=== PATIENT | male | born 1935 | race Caucasian/White ===

== ENCOUNTER 2016-05-01 23:18 | Inpatient (IN) | payer MEDICARE, BC ==
[~2016-05-01] VITALS: Ht 162.6 cm; Wt 72.0 kg
--- NOTE | ~2016-05-01 | CON ---
PATIENT'S NAME: ALTHEA MORRIS [facility] AGE: 80 Y [address] ROOM: [place] [address] LOCATION: [facility] ADMIT DATE: 05/01/2016 Consultation DISCHARGE DATE: FAMILY PHYSICIAN: Vamshi Parikh MD ATTENDING PHYSICIAN: JAMAL PALACIOS DATE OF CONSULTATION: 05/02/2016 CHIEF COMPLAINT: Right frontal intraparenchymal hemorrhage, left-sided weakness, and dysphasia. CLINICAL HISTORY: The patient is an 80-year-old right-handed male patient, who was admitted to the hospital last night after a noncontrast CT head showed a large right frontal intraparenchymal hemorrhage. I met the patient on the Neuro Trauma Unit in the presence of his . Most of the history was obtained from the . She clearly indicated that the patient had a fall from a standing position last night and immediately she noticed difficulties with his speech as well as left-sided weakness. The patient was taken to a nearby emergency where he was investigated. Later on and after a noncontrast CT head showed the right-sided frontal intraparenchymal hemorrhage, he was transferred over for closer observation. He was assessed by Neurology last night. I was contacted and reviewed the imaging. The imaging did show 4 x 2.5 cm intraparenchymal hemorrhage located in the mesial aspect of the right frontal lobe and associated with a small subdural hemorrhage. No other hemorrhages were seen. Overnight, the patient remained stable. The family noticed worsening of his dysphasia. The denied that the patient had complained of any headaches or seizures. There was no loss of consciousness. No fever. No chills. PAST MEDICAL AND SURGICAL HISTORY: Significant coronary artery disease, on Eliquis; CABG surgery; and hernia surgery. MEDICATIONS: Listed in the patient's chart. Essentially, the patient takes Eliquis 2.5 mg b.i.d. ALLERGIES: NO KNOWN DRUG ALLERGIES. SOCIAL HISTORY: The patient is and lives with his in [place]. No history of smoking or alcohol drinking. PATIENT'S NAME: ALTHEA MORRIS [facility] AGE: 80 Y [address] ROOM: [place] [address] LOCATION: [facility] ADMIT DATE: 05/01/2016 Consultation DISCHARGE DATE: FAMILY PHYSICIAN: Vamshi Parikh MD ATTENDING PHYSICIAN: JAMAL PALACIOS REVIEW OF SYSTEMS: All points review of systems were asked about to the . Pertinent positives were mentioned in the HPI. FAMILY HISTORY: The patient has a sister with hypertension. PHYSICAL EXAMINATION: GENERAL: The patient was cooperative and pleasant. He had significant dysphasia and word finding difficulties. HEENT: atraumatic. Sclerae examination was normal bilaterally. NECK: He had mild tenderness to palpation. The neck range of motion was reasonable, but limited in all directions. LYMPHATIC: No cervical lymphadenopathy. CARDIOVASCULAR: He had palpable pulses on the upper extremities. RESPIRATORY: He was in mild respiratory distress. SKIN: He had a sternotomy scar from previous CABG surgery. GAIT: Not done. BACK: Not done. NEUROLOGIC: He was alert and awake. He had significant dysphasia with word- finding difficulties. The pupils were 3 mm and reactive. He was tracking with both eyes in all directions. He obeyed commands on both upper extremities and the right lower extremity. He had fxrzrzji-nx-pfgnjn weakness on the left upper extremity, severe/paralysis of the left lower extremity. Sensory examination was unremarkable. INVESTIGATIONS: 1. Noncontrast CT of the head done at [facility] at 09:35 p.m. and repeated at our hospital at 1 a.m. It showed evidence of a right frontal mesial intraparenchymal hemorrhage, measuring 4.5 cm on the anterior-posterior plane. It also showed evidence of a small adjacent subdural hematoma along the falx cerebri. No evidence of significant edema within the right frontal lobe. 2. CT angiogram of the head and neck. It was negative for aneurysms, vascular malformations. However, it showed evidence of severe stenosis in the right cervical internal carotid artery. IMPRESSION: This is an 80-year-old male patient, who is on Eliquis, post valve replacement. Had a fall yesterday from a standing position. His imaging showed evidence of a right frontal mesial intraparenchymal hemorrhage. The patient has dysphasia and left hemiparesis. The CT angiogram was negative for vascular malformations and aneurysms. PATIENT'S NAME: ALTHEA MORRIS [facility] AGE: 80 Y [address] ROOM: [id number] [place], [place] [address] LOCATION: [facility] ADMIT DATE: 05/01/2016 Consultation DISCHARGE DATE: FAMILY PHYSICIAN: Vamshi Parikh MD ATTENDING PHYSICIAN: JAMAL PALACIOS PLAN: 1. Observation in the neuro trauma unit. 2. Keep the systolic blood pressure less than 150. 3. Repeat noncontrast CT of the head in 24 hours. 4. Vascular Surgery consultation. 5. Cardiology evaluation given the significant cardiac history. 6. Hospitalist consultation for medical management. I discussed the imaging with the patient's and with the attending physician. I clearly indicated that no surgery is needed at this point. I also indicated that the vascular imaging only showed stenosis in the right cervical internal carotid artery. No evidence of aneurysms or vascular malformations that would explain the hemorrhage. I then discussed my plan with both of them. They asked appropriate questions and those were answered to their satisfaction. It was pleasure taking care of this patient and thanks for having us involved. WILLIAM NYE MD AB/modl /[id number] CC: MD Vamshi Menjivar MD d: 05/02/16 2147 t: 05/05/16 1325, CONSULTATION REPORT
--- NOTE | ~2016-05-01 | CON ---
PATIENT'S NAME: ALTHEA MORRIS [facility] AGE: 80 Y [address] ROOM: [place] [address] LOCATION: [facility] [place] ADMIT DATE: 05/01/2016 Consultation DISCHARGE DATE: FAMILY PHYSICIAN: Vamshi Parikh MD ATTENDING PHYSICIAN: JAMAL PALACIOS DATE OF CONSULTATION: 05/02/2016 REASON FOR CONSULT: Right carotid stenosis. HISTORY OF PRESENTING ILLNESS: This is an 80-year-old male admitted to [facility] for slurred speech and left extremity weakness. The patient reports that he fell on April 28, 2016, hitting the back of his head, but he did not experience any symptoms until May 01, 2016. He started to experience slurred speech and left-sided weakness and had another fall at home. The patient was taken to the emergency room at [facility], and the patient was found to have a right-sided frontal intraparenchymal hemorrhage. The patient was transferred to [facility]. The patient has a known history of atrial fibrillation and was on Eliquis during the time of the fall. Once at [facility], a CTA was conducted which was negative for aneurysms or vascular malformation; however, it revealed severe stenosis and plaque in the right internal carotid artery. The patient denies any vision changes, speech changes, or weakness prior leading up to the events mentioned above. No history of tobacco or nicotine use or diabetes. The patient does report leg pain; however, it is not consistent with claudication. He denies any chest pain. Does have some shortness of breath with exertion. Denies nausea, vomiting, diarrhea, abdominal pain, or edema. PAST MEDICAL HISTORY: 1. Coronary artery disease. 2. Atrial fibrillation. 3. Essential hypertension. 4. 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 PAST SURGICAL HISTORY: 1. Coronary artery bypass grafting x2 vessels, multiple heart stents. 2. Pacemaker. 3. Hernia repair. FAMILY HISTORY: Both parents from pneumonia. SOCIAL HISTORY: PATIENT'S NAME: ALTHEA MORRIS [facility] AGE: 80 Y [address] ROOM: [place] [address] LOCATION: [facility] ADMIT DATE: 05/01/2016 Consultation DISCHARGE DATE: FAMILY PHYSICIAN: Vamshi Parikh MD ATTENDING PHYSICIAN: JAMAL PALACIOS The patient denies any nicotine use. He denies any alcohol or illicit drug use. The patient lives in [place] with his . CURRENT MEDICATIONS: See medication records. ALLERGIES: NO KNOWN ALLERGIES. REVIEW OF SYSTEMS: A 10-point review of systems completed, positives addressed in the History of Presenting Illness. PHYSICAL EXAMINATION: VITAL SIGNS: Temperature 97.9, heart rate 70, respiratory rate 18, blood pressure 147/70, and oxygen saturation is 94%. GENERAL: The patient is in no acute distress. He is alert and oriented x3. He does report feeling weak and fatigued and falls asleep multiple times during the interview. SKIN: Warm and pink. No rashes. HEENT: Head: Normocephalic and atraumatic. Ears: Without drainage. Eyes: Sclerae are white. Conjunctivae pink. Extraocular movements intact. PERRLA. Nose: Without drainage. Throat: Oral mucosa pink and moist. No exudate or erythema. NECK: Without adenopathy. No evidence of JVD. Trachea midline. No carotid bruits. RESPIRATORY: Clear to auscultation bilaterally. Even and unlabored. CARDIOVASCULAR: Regular rate and rhythm. No murmur or extra sounds. GASTROINTESTINAL: Bowel sounds active x4. Soft and nontender. No organomegaly. EXTREMITIES: Femoral and radial pulse 2+. Dorsalis pedis and posterior tibialis 1+. There is no cyanosis. No edema. No ulcerations. Extremities are warm to touch. NEUROLOGICAL: The patient has left upper and lower extremity weakness in comparison to the right. Does have difficulty finding his words at times. IMPRESSION: 1. Right carotid stenosis. 2. Hemorrhagic infarct. 3. Essential hypertension. 4. Atrial fibrillation. PLAN: The patient has right high-grade internal carotid artery stenosis. The patient will need right carotid endarterectomy in the future to prevent PATIENT'S NAME: ALTHEA MORRIS [facility] AGE: 80 Y [address] ROOM: [id number] [place] [id number] LOCATION: [facility] ADMIT DATE: 05/01/2016 Consultation DISCHARGE DATE: FAMILY PHYSICIAN: Vamshi Parikh MD ATTENDING PHYSICIAN: JAMAL PALACIOS ischemic stroke. At this time, we are unable to surgically intervene without the use of antiplatelets and anticoagulants. Therefore, the patient may follow up in clinic with Dr. Patel once he is cleared by Neurosurgery to use blood thinners. From that point, we will begin planning for right carotid endarterectomy. In the meantime, we recommend continuing atorvastatin and also resuming Eliquis once he is cleared. We will follow the patient as an outpatient. Thank you for your consultation and for allowing us to participate in the care of this patient. KAILA SOTO APRN FOR HENRY PATEL MD TO/mary /[id number] d: 05/03/16 1057 t: 05/13/16 1732, CONSULTATION REPORT
--- NOTE | ~2016-05-01 | CON ---
PATIENT'S NAME: ALTHEA RADFORD [facility] AGE: 80 Y [address] ROOM: [id number] [place], [place] [address] LOCATION: [facility] ADMIT DATE: 05/01/2016 Consultation DISCHARGE DATE: FAMILY PHYSICIAN: Vamshi Parikh MD ATTENDING PHYSICIAN: JAMAL PALACIOS DATE OF CONSULTATION: 05/02/2016 The patient was seen in neurologic consultation on 05/02/2016 at 12:01 a.m. HISTORY OF PRESENT ILLNESS: Mr. Radford was transferred here this evening from [facility] after we accepted him this evening upon the patient arriving with new onset of slurring of his speech and weakness of his left arm and leg. The history is such that this is a fairly healthy 80-year-old male who is very active. On Friday, approximately 3-1/2 days ago, he was doing a lot of work outside. In fact, he was running around and apparently stepped into a goal for hole and fell backwards hitting the back of his head. He did not lose any consciousness. After the event, he was fine. He did not have any weakness of his extremities. He did not have a headache. He did not have any dizziness. He had no sensory issues. In fact, up until this evening, the patient was doing well and was in his usual state of health. At approximately 8:00 p.m. this evening, he was in his room putting on his pajamas and suddenly got weak in his left leg and fell to his side injuring his left rib. He did not hit his head this evening. His found him on the floor and noticed that he could not move his left arm and his left leg. His mental status was normal and he did not have any aphasia, but he did have severe slurring of his speech. He was taken to the emergency room at [facility] where a CT scan noncontrast was performed and showed evidence of likely acute hemorrhage in the high right frontal region of the brain superior to the ventricles. The bleed was near the falx with some blood noted transecting along the falx, some subtle secondary subdural blood. I saw the patient, this early a.m. and he was alert and oriented. He was not complaining about any headache. He did not have any field vision deficit. He did not have any fixed eye deviation. He was not complaining about a headache. He did not have any nauseousness or vomiting. He did not complain of any sensory deficits. He could elevate his left arm, but there was a drift, but he maintains his left arm elevated. He could move his left leg, but minimally was able to elevate it above the bed for only 1 second. His right side was completely of normal power. Speech was severely slurred, but he did not have any problems with language. In fact, he was able to name objects and parts of objects such as ballpoint pen and the pen point. He was able to follow all cross-body commands such as putting his left thumb on his right forehead. He did not complain about any head or facial pain. He was even able to answer all my questions this evening. He did appear to be a bit tired however. PATIENT'S NAME: ALTHEA RADFORD [facility] AGE: 80 Y [address] ROOM: [place] [address] LOCATION: [facility] ADMIT DATE: 05/01/2016 Consultation DISCHARGE DATE: FAMILY PHYSICIAN: Vamshi Parikh MD ATTENDING PHYSICIAN: JAMAL PALACIOS PRIOR MEDICAL HISTORY: He does have a history of, I believe, coronary artery disease and history of an MD. He had a cardiac surgery with a pig valve, the unknown location of this valve and it is possible he does have a history of arrhythmia. He is currently maintained on Eliquis and he was taking this medication this evening. There is no known history of hypertension. He has no history of diabetes. CURRENT MEDICATIONS: Include: 1. Multivitamin 1 tablet p.o. daily. 2. Eliquis 2.5 mg 1 tablet p.o. twice daily. 3. Furosemide 60 mg daily. 4. Gabapentin 100 mg orally daily. 5. Isosorbide mononitrate ER 30 mg tablet extended release daily. 6. Potassium chloride supplementation 20 mEq extended release daily. 7. Nitroglycerin 0.4 mg tablets orally as needed. ALLERGIES: HE HAS NO KNOWN DRUG ALLERGIES. FAMILY HISTORY: He has a brother who at a young age of 3939 years old of a myocardial infarction. He also has a sister, who had heart disease. We do not know the family history of his parents. SOCIAL HISTORY: He has been for 57 years. He recently lost 1 son and he lives with his jdtkbelv-tu-gxa here in [place]. He moved from the [place] area within the year. He lives with his now at the igcxkuso-px-nsg's home. He has one child, currently living and he has a grandchild who was present today. There is no smoking history. No alcohol use. 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 REVIEW OF SYSTEMS: This is a fairly healthy 80-year-old male patient, who was active and had an accidental trip with his footing, hit the back of his head on Friday approximately 3-1/2 days ago. He did not have any sequela from the head injury. He did not have any signs of the stroke or slurring of his speech. He was doing fine until this evening on April 03, 2016, when he went to go change in his bedroom and suddenly became weak on his left leg and fell on a cardboard box injuring his left ribs. He remains alert and oriented. He was noted to have slurring of his speech and left hemiparesis. He was found to have an acute hemorrhage in the left high frontal region of the brain. PATIENT'S NAME: ALTHEA RADFORD [facility] AGE: 80 Y [address] ROOM: [address] [address] LOCATION: [facility] ADMIT DATE: 05/01/2016 Consultation DISCHARGE DATE: FAMILY PHYSICIAN: Vamshi Parikh MD ATTENDING PHYSICIAN: JAMAL PALACIOS PHYSICAL EXAMINATION: GENERAL: The patient was alert and oriented. He did have slurring of speech. He did not have any aphasia. His naming of objects and parts of objects again were normal. Repetition was also normal, but slurred. CRANIAL NERVES: Pupils are equal and reactive to light and accommodation. Extraocular muscles are intact. There was no gaze preference. There is no facial droop. There is normal facial symmetry and sensation. NECK: Supple on flexion and extension. There is no pain in the cervical spine region or into his trapezius muscles or his paraspinal muscles of his neck. He has no pain into the shoulder region. He is able to elevate his arms above his head, but he does have a bit of a drift in his distal forearm and hand. His hand copper etcher is a bit diminished on the left. His right upper extremity power is full at 5/5 grade and right lower extremity power was 5/5. His left leg is the weakest and can only elevate it for about 1 second above the bed. Testing of the cortical sensory perception was completely normal. He was able to identify the left and right discrimination and double simultaneous stimulation was normal. Sensation to light touch and sharp touch was normal. Rapid alternating hand movements were normal and he displayed no dysmetria on the right and subtle weakness was noted in the left upper extremity and was unable to perform testing for dysmetria. The patient was not ambulated. So, at this point in time, upon the advice of Dr. Ta Ceja, the neurosurgeon, I did go over the results of the CAT scan of the brain. He suggested that we get a CT angiogram at this time. We want to rule out any possibility of a vascular abnormality such as a small aneurysm. It is quite possible that the patient had a primary bleed unrelated to the recent fall. Thus, a CT angiogram would look for any evidence of this intraparenchymal finding. Since the bleed is above the ventricles, it does not seem to compromise the ventricular system and this is less likely to cause a seizure. By prior medical history, there is a suggestion that he did one time also hit his head and had a prior small hemorrhage that resulted in him having a seizure in the past. Apparently, he was on a seizure medication for a short time, but he did not require a seizure medication for an extended period of time. He cannot tell me how long he was on a seizure med. We will hold off on giving him an antiepileptic medication at this time. Chance for a seizure is probably low, due to lack of blood in the ventricle. We will continue to follow the patient closely and try to maintain his blood pressure in the range of 120-150 this evening. The case was discussed with Dr. Castillo from the hospitalist service this evening along with Dr. Ceja. PATIENT'S NAME: ALTHEA RADFORD [facility] AGE: 80 Y [address] ROOM: [place] [address] LOCATION: [facility] ADMIT DATE: 05/01/2016 Consultation DISCHARGE DATE: FAMILY PHYSICIAN: Vamshi Parikh MD ATTENDING PHYSICIAN: JAMAL PALACIOS MD JRM/modl /[id number] d: 05/02/16 0830 t: 05/07/16 1606, CONSULTATION REPORT
--- NOTE | ~2016-05-01 | HP ---
PATIENT'S NAME: ALTHEA MORRIS [facility] AGE: 80 Y [address] ROOM: [place] [address] LOCATION: [facility] ADMIT DATE: 05/01/2016 History & Physical DISCHARGE DATE: FAMILY PHYSICIAN: Vamshi Parikh MD ATTENDING PHYSICIAN: JAMAL DOLL DATE OF SERVICE: CHIEF COMPLAINT: Slurred speech and left lower extremity weakness. HISTORY OF PRESENT ILLNESS: The patient is an 80-year-old male with past medical history of atrial fibrillation, and multiple cardiac conditions, currently on Eliquis who sustained a mechanical fall approximately two days ago. At that point, he did not volunteer any complaints. Today, the patient was noted to be slurred and imbalanced and falling over. He did fall over some chairs and hurt his left posterior thorax. He was taken to the emergency room at [facility]. There a CAT scan demonstrated a right parietal intracerebral hemorrhage. The patient was accepted by Dr. Doll, and transferred to [facility]. At this point, the patient has been seen by Dr. Doll and discussed with Dr. Ceja of Neurosurgery. A CT angiogram is currently being conducted. At this point, the patient's only complaint is slurred speech and rib pain at left posterior thorax. REVIEW OF SYSTEMS: All systems have been reviewed and are negative aside for pertinent positives mentioned above. PAST MEDICAL HISTORY: Significant for: 1. Coronary artery disease, status post CABG x2, multiple stents, status post pacemaker, long-term anticoagulation for atrial fibrillation. 2. Hypertension. 3. History of an intracerebral hemorrhage with seizures due to a mechanical fall in 2008. SURGICAL HISTORY: Significant for CABG x2. PATIENT'S NAME: ALTHEA MORRIS [facility] AGE: 80 Y [address] ROOM: [place] [address] LOCATION: [facility] ADMIT DATE: 05/01/2016 History & Physical DISCHARGE DATE: FAMILY PHYSICIAN: Vamshi Parikh MD ATTENDING PHYSICIAN: JAMAL DOLL SOCIAL HISTORY: Negative for any history of ongoing toxic habits. FAMILY HISTORY: Reviewed in its entirety and is noncontributory due to no underlying etiology for patient's presentation. CURRENT MEDICATIONS: Include: 1. Spironolactone. 2. Eliquis. 3. A full list is currently being compiled. PHYSICAL EXAMINATION: VITAL SIGNS: At this point, blood pressure 120/60, heart rate is in the 60s, saturating 96% on room air. He is afebrile. Respirations are 16. GENERAL: Appears as a well-developed, well-nourished, elderly male, in no acute distress. NEUROLOGIC: Significant for slurred speech. Some very minor left-sided facial droop and diminished motor function in the left upper and left lower extremities. EYES: Shows pupils are equal and reactive to light. LYMPHATIC: Shows no cervical lymphadenopathy. ENDOCRINE: Shows no thyromegaly. LUNGS: Clear to auscultation. HEART: Rate is regular with no appreciable murmurs, gallops, or rubs. GI: Abdomen is soft, nontender, and nondistended. THORAX: Does reveals some tenderness to percussion over his left posterior thorax. : Reveals no costovertebral angle tenderness. VASCULAR: 2+ pedal pulses. MUSCULOSKELETAL: As per thorax. PSYCHIATRIC: Reveals appropriate mood, cognition, and affect. SKIN: Warm and dry. LABORATORY DATA: Review of studies from the outside facility significant for a 4 mm right frontal hemorrhagic lesion on the CAT scan. Lab results significant for sodium 132. ASSESSMENT AND PLAN: 1. This is an 80-year-old male, who is being admitted with intracerebral hemorrhage status post mechanical fall. The patient is being followed by Neurology and Neurosurgery. At this point, he is undergoing a CT angio to see if an aneurysm can be located and fixed. We will also evaluate for evolution of the hemorrhage and consider reversing his PATIENT'S NAME: ALTHEA MORRIS [facility] AGE: 80 Y [address] ROOM: [id number] [place] [id number] LOCATION: [facility] ADMIT DATE: 05/01/2016 History & Physical DISCHARGE DATE: FAMILY PHYSICIAN: Vamshi Parikh MD ATTENDING PHYSICIAN: JAMAL DOLL anticoagulation if there is significant progression. We will discuss with Neurosurgery. 2. Atrial fibrillation. At this point, we will obviously hold off on his Eliquis and continue on his rate and rhythm control agents. 3. Coagulopathy. There is no definitive way of reversing Eliquis, but we will consider Kcentra if considerable progression of the hemorrhage is seen. 4. Essential hypertension. We will continue the patient on his current regimen and control his blood pressure in the setting of intracerebral hemorrhage. 5. We will request a bedside speech evaluation. Put him on a regular diet if he passes that, he will need a formal evaluation given his present neurological exam. 6. Additional management will depend on clinical course. Time dedicated to patient encounter is 35 minutes. MD DARREN ANDRADE/mary /[id number] D: T: 951 HISTORY & PHYSICAL
--- NOTE | ~2016-05-01 | CON ---
PATIENT'S NAME: ANIL RADFORD [facility] AGE: 80 Y [address] ROOM: [id number] [place], [place] [address] LOCATION: [facility] ADMIT DATE: 05/01/2016 Consultation DISCHARGE DATE: FAMILY PHYSICIAN: Vamshi Parikh MD ATTENDING PHYSICIAN: JAMAL PALACIOS DATE OF CONSULTATION: 05/02/[address] Ceja. Dear Dr. Ceja: Thank you for asking me to see Mr. Radford, who is an 80-year-old male patient, who had an accidental fall about 4 days earlier at home, hitting the back of his head. Yesterday evening, he had a fairly sudden onset of difficulty with his speech and left-sided weakness. He was taken to [facility] emergency room from where he was transferred here for neurosurgical consultation because of right frontal bleeding. I am being asked to see him because of his extensive heart history. The history is mostly from the patient's and his medical records that are available to me with some occasional help from Anil when he wakes up from a nap. It appears as if he had an NC in 1986 for the first time. He underwent 3-vessel bypass grafting at that time. He underwent 8 different stenting procedures, most of those were done in [facility] in [place]. In 2009, he underwent a "pig valve" replacement and 2-vessel bypass grafting. Since then, he has had one other stent placed. In addition, he also has paroxysmal atrial fibrillation as well as permanent pacemaker placement. From his cardiac standpoint, he has not been very symptomatic. He has not had any chest pain lately. He denies any shortness of breath. His states that he is not as strong as he used to be, and he also tires rather easily. If he walks a block and a half, he gets short of breath, but he still seemed to be in Functional Class II with no paroxysmal nocturnal dyspnea or orthopnea as long as he is using his CPAP at night. He has no structured exercise program. There is no lightheadedness, dizziness, syncope, presyncope, palpitations, or ankle swelling. He used to be on Coumadin before and was transferred to apixaban at some point in the past, and she is unable to remember that. There is no history of rheumatic fever. His CHADS2-VASc score is 3 at this time. His HAS-BLED score is fairly low. MEDICATIONS: PATIENT'S NAME: ANIL RADFORD [facility] AGE: 80 Y [address] ROOM: [place] [address] LOCATION: [facility] ADMIT DATE: 05/01/2016 Consultation DISCHARGE DATE: FAMILY PHYSICIAN: Vamshi Parikh MD ATTENDING PHYSICIAN: JAMAL PALACIOS His current list of medications that he came in with, of which his apixaban is being held. They include: 1. Tylenol p.r.n. 2. Apixaban as mentioned which is being held. 3. Carvedilol which is being held again. 4. Vitamin D3 a 1000 units every day. 5. Furosemide 40 mg 1-1/2 tablets a day. 6. Gabapentin 100 mg 3 times a day. 7. Isosorbide mononitrate 30 mg a day. 8. Multivitamin. 9. Nitroglycerin as needed. 10. Protonix 40 mg a day. 11. Potassium chloride 20 mEq every day. 12. Pravastatin 40 mg a day. 13. Aldactone 25 mg a day. 14. Iron tablet once a day. ALLERGIES: NO KNOWN DRUG ALLERGIES. PAST MEDICAL HISTORY: 1. History of knee surgery. 2. Rotator cuff surgery. 3. He had a fall in 2012 after which he had several seizures, and he had bled into his brain at that time as well. He was taken to [facility] and was treated with medications. 4. Sleep apnea, and he uses CPAP machine. SOCIAL HISTORY: The patient is . He lives in [place]. His appetite and weight have been stable. Sleep has been good. FAMILY HISTORY: Positive for premature coronary artery disease. RISK FACTORS FOR CORONARY ARTERY DISEASE: Include elevated cholesterol and family history. He has no history of hypertension, diabetes, or tobacco abuse. REVIEW OF SYSTEMS: A 12-point review of systems revealed: 1. Corrective lenses. 2. Hiatal hernia. 3. DJD. PATIENT'S NAME: ANIL RADFORD [facility] AGE: 80 Y [address] ROOM: [place] [address] LOCATION: [facility] ADMIT DATE: 05/01/2016 Consultation DISCHARGE DATE: FAMILY PHYSICIAN: Vamshi Parikh MD ATTENDING PHYSICIAN: JAMAL PALACIOS PHYSICAL EXAMINATION: VITAL SIGNS: His blood pressure is 140/80, heart rate is in the 70s and he is paced, respirations are 18, afebrile. HEENT: Normal. NECK: Supple with no JVD, thyromegaly, lymphadenopathy, or carotid bruit. CARDIAC: PMI is not well located. First and second heart sounds are regular. He does not have any murmurs at this time at least. CHEST: Clear to auscultation. ABDOMEN: Soft. EXTREMITIES: No edema. CENTRAL NERVOUS SYSTEM: Some weakness in his left leg. ASSESSMENT: An 80-year-old male patient with coronary artery disease as above as well as aortic valve replacement, pacemaker placement, and paroxysmal atrial fibrillation with a CHADS2-VASc score of 3 and HAS-BLED score of about 1. He has had an accidental fall and bled into his brain. Appropriately, his apixaban is being held. Interestingly, he had another fall about 4 years earlier where he hit his head, bled into his brain, and had seizures that was treated in [facility]. RECOMMENDATIONS: 1. We will get hold of his surgical report from [facility] in [place]. In addition, I will switch him from pravastatin to atorvastatin given the fact that he has severe atherosclerotic disease which is progressing. He has bilateral carotid ultrasounds done recently which show that he has less than 50% lesion on both sides. 2. We will have his pacemaker checked. 3. He did have an echocardiogram done in the early part of this month which showed normal ejection fraction without any obvious wall motion abnormalities and normally functioning valve in the aortic position. His Lexiscan Cardiolite study, which was done earlier again this month, revealed no evidence of ischemia. He had a fairly large fixed defect involving the inferior wall. 4. For his cramps, I have recommended vitamin E 800 units a day, and I am not sure that we have that in our pharmacy at this point, but I will try it. Once we get the report from [facility] in [place], we will discuss with yourself regarding when it is, if ever, appropriate for him to go back on oral anticoagulation given his 4% to 5% chance of having a stroke per year based on his CHADS2-VASc score. Again, I appreciate this opportunity to participate in the care of Mr. Radford. PATIENT'S NAME: ANIL RADFORD [facility] AGE: 80 Y [address] ROOM: [id number] [place] [id number] LOCATION: [facility] ADMIT DATE: 05/01/2016 Consultation DISCHARGE DATE: FAMILY PHYSICIAN: Vamshi Parikh MD ATTENDING PHYSICIAN: JAMAL PALACIOS MD WILBERT MCCULLOUGH/mary /[id number] d: 05/02/16 1813 t: 05/07/16 1326, CONSULTATION REPORT
--- NOTE | ~2016-05-01 | DS ---
PATIENT'S NAME: ALTHEA MORRIS [facility] AGE: 80 Y [address] ROOM: [place] [address] LOCATION: [facility] ADMIT DATE: 05/01/2016 Discharge Summary DISCHARGE DATE: 05/10/2016 FAMILY PHYSICIAN: Vamshi Parikh MD ATTENDING PHYSICIAN: London Castillo V PRINCIPAL DIAGNOSES: 1. Intracranial hemorrhage. 2. History of atrial fibrillation, on Eliquis. 3. Coronary artery disease, status post CABG. 4. Hypertension. BRIEF HOSPITAL COURSE: This is an 80-year-old male with a history of atrial fibrillation, on Eliquis, who was admitted to the hospital after sustaining a mechanical fall prior to presentation, then had slurring of speech and left lower extremity weakness following his initial fall. After the patient was evaluated in the emergency room, he had a CAT scan done, which showed a right parietal intracerebral hemorrhage. The patient was admitted and was evaluated by the Neurosurgery team, and then was also seen by Dr. Doll, and the patient was conservatively managed. The patient's blood thinners specifically Eliquis was held throughout the hospital stay, and this is to be held indefinitely until outpatient followup. The patient neurologically improved his hospital stay and did not require any surgical intervention. Of note, the patient was also noted to have hyponatremia related to his intracranial process during admission and was adequately corrected during hospitalization as well. The patient now had a repeat CT scan, which shows no signs of worsening of the bleed. The patient is now to be discharged and be transferred over to [facility] for continued acute rehab, and Dr. Velasquez will be taking over care. PHYSICAL EXAMINATION: VITAL SIGNS: Today, the patient is awake, alert, and oriented x3, in no acute distress. HEART: S1, S2. Regular rate and rhythm. ABDOMEN: Soft, nontender, nondistended. EXTREMITIES: Without edema. NEURO: No focal changes. MEDICATIONS: Per MAY. DISPOSITION: Transfer to [facility]. Greater than 30 minutes spent in discharge planning and facilitating. PATIENT'S NAME: ALTHEA MORRIS [facility] AGE: 80 Y [address] ROOM: [place] [address] [facility] ADMIT DATE: 05/01/2016 Discharge Summary DISCHARGE DATE: 05/10/2016 FAMILY PHYSICIAN: Vamshi Parikh MD ATTENDING PHYSICIAN: London Castillo V LOREOT MD BENJA FARFAN/modl /[id number] d: 05/31/16 0258 t: 06/17/16 1418, DISCHARGE SUMMARY
--- NOTE | ~2016-05-01 | CON ---
PATIENT'S NAME: ALTHEA MORRIS [facility] AGE: 80 Y [address] ROOM: [id number] [place] [address] LOCATION: [facility] ADMIT DATE: 05/01/2016 Consultation DISCHARGE DATE: FAMILY PHYSICIAN: Vamshi Parikh MD ATTENDING PHYSICIAN: JAMAL PALACIOS This is a consult for Dr. Ceja. This pleasant 80-year-old gentleman is referred for rehab evaluation and possible admission. I was admitted to [facility] on 05/01/2016 with slurring of speech of sudden onset and weakness. He fell at home and eventually brought him to hospital and was seen. At that time, CT scan was done and it showed right frontal parenchymal hemorrhage. He was then transferred to [facility] from [facility] here in [place] for further management and higher care. His CT scan here confirmed the right frontal parenchymal hemorrhage, but it was reported as stable with no midline shift. No hydrocephalus. No other issues. He has history of pacemaker placement with coronary artery disease and hypertension with osteoporosis and dyslipidemia. He is at the present time having difficulty with his speech. It is clear, but he is struggling to bring out the words properly. He has slight facial droop on the left side and has marked left temporal visual field neglect and his speech is realistically slurred. He can follow instructions fairly well, however, he is neglecting visual field on the left side too. He has minimum, if any, volitional movement in the left lower extremity. Very little volitional movement in the left upper extremity. At the present time, he is able to comprehend and express self. He could easily do math numbers fairly well and he is not attending to the left side objects and also his left hand and foot. Overall, he answers questions fairly nicely. VITAL SIGNS: Blood pressure 151/70, temperature 97.9, pulse is 70, and respirations 16. He is 5 feet and 4 inches tall and weighs 71.9 kg. His tongue is slightly slower on the left side and his soft palate is moving symmetrical, although I am not so sure if it is moving as briskly as the right side. I could not evaluate it well, however, he has good gag reflex. PATIENT'S NAME: ALTHEA MORRIS [facility] AGE: 80 Y [address] ROOM: [address] [address] LOCATION: [facility] ADMIT DATE: 05/01/2016 Consultation DISCHARGE DATE: FAMILY PHYSICIAN: Vamshi Parikh MD ATTENDING PHYSICIAN: JAMAL PALACIOS So far, he has good bowel and bladder control and his deep tendon reflexes are slightly exaggerated on the left side. He is on the following medications: 1. Protonix. 2. Gabapentin. 3. Isordil. 4. KCl. 5. NaCl 0.9%. 6. Spironolactone. 7. Nitroglycerin. 8. Lasix. 9. Vitamin D3. 10. Coreg. 11. Lipitor. 12. Vitamin E. 13. Tylenol. 14. Ultram. 15. Zofran. 16. Morphine sulfate. 17. Tramadol. At the present time, we will continue him with PT, OT, and Speech. Please see the orders. I feel that this gentleman will benefit from intensive rehabilitation of about 3 weeks, aiming to discharge home for outpatient therapy and follow on at [facility]. We will brace him as necessary. We will do electric stimulation as necessary for specific group of muscles. Please see the orders. I did explain all the above to his in detail and himself, they verbalized understanding and agreement. Thank you for this referral. I will take him as soon as I have an opening. JESSICA SERRA MD WMS/modl /[id number] d: 05/03/161915 t: 05/05/16 0913, CONSULTATION REPORT
--- NOTE | 2016-05-02 02:38 | NUR ---
Patient is a 80 y/o male [place]. Fell and hit the back of his head on Friday04/28/16 as he was out shooting guns with his family. Didn't have any issues until evening of 05/01/16 when he went to get out of his rocking chair and almost fell. said his coordination was not very good. This was a sudden onset as he wasn't experiencing any symptoms before this last evening. He then went to lie down on his bed and fell in the bedroom on a cardboard box. The patient experienced left flank pain after this. Patient went to [facility] first, then transferred to [facility] after CT results. Admitted to the Neurotrauma floor at 2315. Presented with left sided weakness, left facial droop. NIHSS=8. Significant Heart Hx. Pacemaker. VSS. Afebrile. Denies N/T/headache. Pupils equal and reactive. Pain to left ribs. Family at bedside.
--- NOTE | 2016-05-02 05:12 | NUR ---
SIGNIFICANT EVENT: PATIENT A/O X 3. EXPRESSIVE APHASIA. NIHSS=8. LEFT UPPER AND LOWER EXTREMITY WEAKNESS. LEFT SIDE FACIAL DROOP. PERRLA. DENIES N/T/HEADACHE. PAIN TO LEFT SHOULDER AND LEFT SIDE/RIBS. LIDOCAINE PATCH APPLIED TO LEFT SIDE. TYLENOL GIVEN X 1 AT 0416. PACEMAKER. NO EDEMA. LUNGS CLEAR ON ROOM AIR. VOIDS PER URINAL. LAST BM 05/01/16, PATIENT REPORTED. HEAVY 2 ASSIST. ONLY ASSISTED TO STAND AT BEDSIDE THIS SHIFT, LEANS HEAVILY TO THE LEFT. PIV TO LEFT FOREARM SL. C/O LLE MUSCLE CRAMPING THIS SHIFT WELL-EXTREMITY ELEVATED. PT REQUESTED PNEUMATIC REMOVAL. FOLLOW UP: PASSED BEDSIDE SWALLOW. SUGGEST TRYING MEDS CRUSHED IN APPLESAUCE, HAD DIFFICULTY GETTING PILLS DOWN WITH JUST WATER.
[2016-05-02] MEDS ORDERED: LASIX20 MG PO (08:50)
[2016-05-02] MEDS ORDERED: NEURONTIN100 MG PO (08:50)
[2016-05-02] MEDS ORDERED: ELIQUIS2.5 MG PO (08:50)
[2016-05-02] MEDS ORDERED: LIDODERM1 EACH TRANS (08:50)
[2016-05-02] MEDS ORDERED: ISORDIL20 MG PO (08:51)
[2016-05-02] MEDS ORDERED: PRAVACHOL40 MG PO (08:51)
[2016-05-02] MEDS ORDERED: K-TAB ER20 MEQ PO (08:51)
[2016-05-02] MEDS ORDERED: PANTOPRAZOLE SO40 MG PO (08:51)
[2016-05-02] MEDS ORDERED: ALDACTONE25 MG PO (08:52)
[2016-05-02] MEDS ORDERED: CENTRUM SILVER1 TAB PO (08:52)
[2016-05-02] MEDS ORDERED: NITROSTAT0.4 MG PO (08:55)
[2016-05-02] MEDS ORDERED: VITAMIN D1000 UNIT PO (08:56)
[2016-05-02] MEDS ORDERED: IRON GLYCINATE PO (08:57)
[2016-05-02] MEDS ORDERED: TYLENOL325 MG PO (08:58)
[2016-05-02] MEDS ORDERED: [UNRECOGNIZED DRUG - OTHER] NOSE (08:59)
--- NOTE | 2016-05-02 13:53 | NUR ---
Significant Event: PT ALERT AND ORIENTED X3. EXPRESSIVE APHASIA. L)EXTREMITIES REMAIN WEAK; L)FACIAL DROOP. TRANSFERS WITH 2-ASSIST. LEANS TO THE LEFT SIDE. UP IN THE CHAIR THIS MORNING. VITAL SIGNS STABLE; ON ROOM AIR. WEARS CPAP AT HOME. PACEMAKER. IV TO L)WRIST SALINE LOCKED. CARDIAC DIET; NEEDS ASSISTANCE WITH MEALS. IV MORPHINE GIVEN AT 0745 FOR COMPLAINTS OF L)LEG/RIB PAIN. CHEST X-RAY AND HEAD CT DONE EARLY THIS AM ON PBX MANAGER. Follow up: NON-CONTRAST HEAD CT ORDERED FOR TOMORROW; CONTINUE TO MONITOR
--- NOTE | 2016-05-03 01:31 | NUR ---
Significant Event: Patient A/O X 3. Pupils equal and reactive. Denies n/t. No headache. Nausea has subsided. Severe expressive aphasia. Left sided facial droop. Moves right arm and right leg spontaneously and to command. Left sided weakness. Unable to lift LUE, has a very weak hand grasp. LLE unable to lift or wiggle toes. NIHSS=11 this shift. Heavy 2 assist with transfers, uses hemiwalker, leans heavily to the left. Pacemaker. Lungs clear on room air. Wore CPAP while sleeping, brought from home. Cardiac diet. No bm this shift. Voids per urinal. IV to left FA SL. HTN at times. Labetalol if needed to keep SBP less than 150. Experiences cramping in legs at times. Spouse says this is typical for patient. Helps to elevate legs. Pain to back. Ultram last given at 2104. Tylenol last given at 2341, relief noted. Follow up: CT scan this am.
[2016-05-03 03:52] LABS: BASOPHIL % 0.2 %; EOSINOPHIL # 0.1 K/uL (0.0-0.5); EOSINOPHIL % 1.2 %; HEMATOCRIT 36.2 % (33.0-50.0); HEMOGLOBIN 12.2 g/dL (11.0-16.0); IMMATURE GRANULOCYTE % 0.2 %; LYMPHOCYTE # 0.7 K/uL (0.8-4.0); LYMPHOCYTE % 7.5 %; MCH 30.7 pg (27.0-34.0); MCHC 33.7 gm/dL (32.0-36.5); MCV 91.2 fl (83.0-98.0); MONOCYTE # 0.8 K/uL (0.0-1.0); MPV 10.1 fl (9.4-12.4); NEUTROPHIL # (ANC) 7.1 K/uL (1.4-9.0); NEUTROPHIL % 81.9 %; NRBC % 0 /100WBC (0-0.00); PLATELET COUNT 137 K/uL (150-450); RBC 3.97 M/uL (3.50-5.50); RDW-CV 13.6 % (11.9-14.6); WBC 8.7 K/uL (4.0-11.0)
[2016-05-03 04:03] LABS: ANION GAP 13.6 (10.0-19.0); BLOOD UREA NITROGEN 15 mg/dL (6-24); CALCIUM 8.5 mg/dL (8.5-10.5); CHLORIDE 98 mMol/L (96-110); CO2 25 mMol/L (22-32); CREATININE 0.8 mg/dL (0.6-1.3); ESTIMATED GFR (MDRD EQUATION) > 60; MAGNESIUM 2.2 mg/dL (1.3-2.6); POTASSIUM 4.6 mMol/L (3.7-5.1); SODIUM 132 mMol/L (135-145)
--- NOTE | 2016-05-03 11:39 | NUR ---
Introduced myself and CM role to Anil and his , Amee who was at bedside. Talked primarily with Amee as Anil was working with therapies when I entered the room. Amee tells me that they just recently moved [place] to [place] to be closer to family. Anil's PCP is here in [place]. I visited with Amee about possibly seeing if we could get Anil to [facility] upon discharge from acute care, she was in agreement with this plan. Let her know that if [facility] couldn't accept, we might have to look into SNF options in the commuity. Went over those with her, but told her if we got to that point we would talk about it more in depth at that time. She was fine with this. She is having her grandchildren bring her up/take her home from [facility] as she doesn't really care to drive. She has no other questions, needs or concerns. I called and left Elisa on [facility] a VMM upon leaving the room, asking when/if they might be able to take Anil to [facility]. No call back from her at this point. Will continue to follow and assist.
--- NOTE | 2016-05-03 14:23 | NUR ---
Significant Event: Patient is alert and oriented x3. Forgetful at times. Follows commands. Aphasia improving throughout the day. Denies GRANT, Denies N/T. PERRLA. Left leg- Pale, cool, 2+ pulse, no edema. Withdraws to pain. Left arm- Pale, cool, 2+ pulse. weak template fitter. follows commands. Denies N/T. NIHSS- 13. Facial paralysis. No effort against gravity on left side. Ataxia, aphasia and slurring. Paced. Abrasion to left arm and wilson. Bruise to right arm. Bowel sounds active. Ambulates with heavy two assist- leans to the left. Crush pills in applesauce. at bedside. Pleasant and cooperative with cares. Goal- Keep SBP <150 Follow up:
--- NOTE | 2016-05-04 04:41 | NUR ---
Significant Event: The patient is Alert and Oriented x3. Drowsy. Denies Numbness and Tingling. Moves the Right extremities spontaneously and to command. Left fingers wiggle, but other than that no other movement to the Left extremities other than withdrawl to painful stimuli. NIHSS 13. VSS. On room air. Wears CPAP at night. SBP goal is to keep it less than 150. PIV to the Left forearm saline locked. Pupils are equal and reactive. Denied pain this shift. Up with full lift. Incontinent at times. Pacemaker. Crush meds and put in applesauce. Follow up:
--- NOTE | 2016-05-04 15:03 | NUR ---
Significant Event: PT ALERT AND ORIENTED X3. EXPRESSIVE APHASIA. PERRLA. FOLLOWS COMMANDS. ABLE TO SLIGHTLY WIGGLE FINGER TO L)HAND; WITHDRAWS TO L)EXTREMITIES. R)SIDE EXTREMITIES MOVES SPONTANEOUSLY AND TO COMMAND. HEAVY 2-ASSIST/TURN Q2H/FULL LIFT. SAT IN THE CHAIR FOR MOST OF THE SHIFT. PACEMAKER WITH PACED RHYTHM. VOIDS PER URINAL AND HAS BEEN INCONTINENT OF URINE. LAST BM ON 05/01; BOWEL SOUNDS ACTIVE X4 AND PASSING FLATUS. BILATERAL CALF PUMPS ON. L)FOOT DROP BOOT IN PLACE. POOR APPETITE; NEEDS TO BE FED MEALS. PT'S FAMILY HAS FED PT BREAKFAST AND LUNCH. CHEST X-RAY DONE THIS AFTERNOON DUE TO COUGHING ON LIQUIDS AT LUNCH AND LUNG SOUNDS WHEEZY/SLIGHTLY COARSE. RESULTS SHOWED ATELECTASIS; NEGATIVE FOR ASPIRATION PNEUMONIA. TAKES MEDICATIONS CRUSHED IN APPLESAUCE. DOES HAVE A SENSITIVE GAG REFLEX. LIDODERM PATCH APPLIED TO L)UPPER BACK FOR BACK/RIB PAIN (ORDER TO BE ON 12 HOURS, THEN OFF FOR 12 HOURS). BENGAY PRN CREAM APPLIED TO L)SHOULDER. FAMILY HAS BEEN AT BEDSIDE ALL SHIFT. Follow up: CONTINUE TO MONITOR
--- NOTE | 2016-05-05 04:41 | NUR ---
Significant Event: A/OX3. DROWSY MOST OF SHIFT. ENCOURAGED INCENTIVE SPIROMETER WHEN AWAKE AND DURING ASSESSMENTS. PATIENT COULD ONLY GET 50ML, DUE TO DROWSINESS. EXPRESSIVE APHASIA. ABLE TO SLIGHLY WIGGLE LEFT FINGERS AND TOES. WITHDRAWS TO PAIN IN LEFT EXTREMITIES. ABLE TO MOVE RIGHT EXTREMITES SPONTANEOUSLY AND TO COMMAND. HEAVY TWO ASSIST/FULL LIFT. PACED RHYTHM. INCONTINENT OF URINE. LAST BM ON 05/01: BS ACTIVE AND PASSING FLATUS. LEFT FOOT DROP BOOT IN PLACE. 1:1 FEEDER - POOR APPETITE. MEDS CRUSHED IN APPLESAUCE. CARDIAC DIET WITH THIN LIQUIDS. SBP GOAL IS <150. PIV TO LEFT FOREARM SALINE LOCKED. NIHSS 14. DENIED PAIN. Follow up:
[2016-05-05 05:53] LABS: BLOOD UREA NITROGEN 13 mg/dL (6-24); CALCIUM 8.5 mg/dL (8.5-10.5); CO2 22 mMol/L (22-32); CREATININE 0.6 mg/dL (0.6-1.3); ESTIMATED GFR (MDRD EQUATION) > 60
[2016-05-05 06:00] LABS: ANION GAP 14.4 (10.0-19.0); CHLORIDE 87 mMol/L (96-110); MAGNESIUM 2.2 mg/dL (1.3-2.6); POTASSIUM 4.4 mMol/L (3.7-5.1); SODIUM 119 mMol/L (135-145)
[2016-05-05 06:22] LABS: BASOPHIL % 0.3 %; EOSINOPHIL # 0.1 K/uL (0.0-0.5); EOSINOPHIL % 0.6 %; HEMATOCRIT 36.3 % (33.0-50.0); HEMOGLOBIN 13.1 g/dL (11.0-16.0); IMMATURE GRANULOCYTE # 0.1 K/uL (0.0-0.3); IMMATURE GRANULOCYTE % 0.8 %; LYMPHOCYTE # 0.7 K/uL (0.8-4.0); LYMPHOCYTE % 7.1 %; MCH 30.5 pg (27.0-34.0); MCHC 36.1 gm/dL (32.0-36.5); MONOCYTE # 1.4 K/uL (0.0-1.0); MONOCYTE % 13.5 %; MPV 9.5 fl (9.4-12.4); NEUTROPHIL # (ANC) 7.9 K/uL (1.4-9.0); NEUTROPHIL % 77.7 %; NRBC % 0 /100WBC (0-0.00); RBC 4.29 M/uL (3.50-5.50); RDW-CV 13.2 % (11.9-14.6); WBC 10.2 K/uL (4.0-11.0)
[2016-05-05 06:26] LABS: MCV 84.6 fl (83.0-98.0); PLATELET COUNT 166 K/uL (150-450)
[2016-05-05 17:10] LABS: BLOOD UREA NITROGEN 14 mg/dL (6-24); CALCIUM 8.2 mg/dL (8.5-10.5); CO2 26 mMol/L (22-32); CREATININE 0.7 mg/dL (0.6-1.3); ESTIMATED GFR (MDRD EQUATION) > 60; POTASSIUM 4.1 mMol/L (3.7-5.1)
[2016-05-05 17:16] LABS: ANION GAP 15.1 (10.0-19.0); CHLORIDE 87 mMol/L (96-110); SODIUM 124 mMol/L (135-145)
--- NOTE | 2016-05-05 19:34 | NUR ---
Significant Event: Patient Alert and oriented x3. Able to state name, , and that he is at [facility]. VS stable. On RA. Full lift transfer for nursing. Patient up in chair this shift. Expressive aphasia. Patient able to follow commands appropriately. Patient incontinent of urine this shift. Encouraged to use the urinal. No BM this shift. Miralax and Colace ordered. Patient was choking on lunch and speech therapy was able to help patient clear. Speech therapy recommendations were to have a Modified Barium swallow, and to be NPO. Patient to have the Modified Barium swallow in the AM of 05/06/16. Patient sodium levels closely monitored. Has 3% saline at 15ml/hr and NS at 35ml/hr. Patient to have NA levels checked at midnight and 0500. Orders on parameters to call MD. Family supportive at bedside. NIHSS of 14 Follow up:
[2016-05-06 00:24] LABS: ANION GAP 14.3 (10.0-19.0); BLOOD UREA NITROGEN 15 mg/dL (6-24); CALCIUM 8.2 mg/dL (8.5-10.5); CHLORIDE 91 mMol/L (96-110); CO2 23 mMol/L (22-32); CREATININE 0.6 mg/dL (0.6-1.3); ESTIMATED GFR (MDRD EQUATION) > 60; POTASSIUM 4.3 mMol/L (3.7-5.1)
[2016-05-06 00:25] LABS: SODIUM 124 mMol/L (135-145)
--- NOTE | 2016-05-06 04:13 | NUR ---
Significant Event: A/Ox3. Denies numbness and tingling. Denies pain. Drowsy. Aphasic. Encourage incentive spirometer when awake. Left side no effort against gravity, reacts to pain. Right side moves spontaneously and to command. NIHSS 13. Heavy two assist/full lift. Paced rhythm. Incontinent of urine. Moderate BM this shift. Left foot drop boot in place. NPO. Barrium swallow study today. `1:1 feeder. SBP goal is <180. PIV to left forearm running 3% sodium chloride at 15ml/hr with 0.9% NS at 65ml/hr. Follow up:
[2016-05-06 05:57] LABS: ANION GAP 12.1 (10.0-19.0); BLOOD UREA NITROGEN 14 mg/dL (6-24); CALCIUM 8.4 mg/dL (8.5-10.5); CHLORIDE 92 mMol/L (96-110); CO2 25 mMol/L (22-32); CREATININE 0.6 mg/dL (0.6-1.3); ESTIMATED GFR (MDRD EQUATION) > 60; POTASSIUM 4.1 mMol/L (3.7-5.1); SODIUM 125 mMol/L (135-145)
--- NOTE | 2016-05-06 11:17 | NUR ---
Call to Elisa on [facility] this morning, she states that they can accept Anil on Friday05/08/16 0900. I updated Meredith RN, Michael RN, Dr. Pierce and resource nurse [place]ion to this. Packet started, orders printed, no ID Screen needed. Sticky note placed on chart for others to see the plan. Updated Anil and to the plan for [facility] on Friday, both are in agreement with the plan to go there for continued therapies before reaching their goal of him returning home. No other questions, needs or concerns. Will continue to follow and assist. Plan [facility] 05/08/16 at 0900.
--- NOTE | 2016-05-06 17:30 | NUR ---
Significant Event:VSS, Denies pain. MBS done, pt is supervised feed. Feeds self well with cueing about small bites slowly. Contines to be A/O x 3, expressive aphasia. Follows commands. L side flaccid, R leg slight drift. Tx with lift. L foot drop boot on. 3% Na IV at 25ml, and NS carrier at 25ml. Next Na level blood draw at 1800. Incontinent of urine and bm. Follow up:Labs.
--- NOTE | 2016-05-07 02:33 | NUR ---
Significant Event: Patient is alert and oriented x 3. Denies pain, numbness, or tingling. Moves right side spontaneously and to command. Left side is flaccid. Foot drop boot to left foot. NIHSS-13. PERRL. Expressive aphasia. Facial droop. Limb ataxia. VSS. On room air. Afebrile. Lungs clear. Mechanical soft diet with thin liquids. Supervised meals. Multiple loose BMs this shift-held HS stool softener. 2+ pulses. Trace edema. Full lift. Incontinent. Turn Q2H. NS infusing to left inner forearm at 50 mL/hr with no complications. CPAP at night. Follow up: NIHSS, [facility] Friday at 0900
--- NOTE | 2016-05-07 10:11 | NUR ---
Talked with full charge bookkeeper Meredith, she states that she rounded with Dr. Ceja this morning, he is planning on doing a repeat CT scan on Friday morning so he doesn't want Anil going to [facility] until that is done. Therefore, we are going to hold unruly until Friday at 0900. I phoned Elisa on [facility], updated her to this, she is fine with the plan to transfer to [facility] on Friday instead of Friday. Updated Anil and to this, both fine with the plan to transfer on Friday instead of Friday.
--- NOTE | 2016-05-07 16:22 | NUR ---
Significant Event:VSS, Pt more awake today compared to yesterday. Alert to self, spouse, . States he is in hospital. L side remains flaccid, shoulder sling, and foot drop used for support. Sensation to both sides. Supervised eating. Pt is improving with feeding self, meds crushed in pudding or Ensure. NIHSS 13. Tylenol 650mg po for c/o pain. Pt worked with PT/OT/ST therapies today. Up in chair per lift. IV restarted in R AC. NS at 50ml continues. Pt incontinent and voids at times. No BM this shift, passing flatus. Follow up:Rehab on Friday.
--- NOTE | 2016-05-08 04:09 | NUR ---
Significant Event: Patient is alert and oriented x 3. Denies pain, numbness, or tingling. Moves right side spontaneously and to command. Left side is flaccid. Foot drop boot to left foot. NIHSS-13. PERRL. Expressive aphasia. Facial droop. Limb ataxia. VSS. On room air. Afebrile. Lungs clear. Mechanical soft diet with thin liquids. Supervised meals. Held HS stool softener. 2+ pulses. Trace edema. Full lift. Incontinent. Turn Q2H. NS infusing to right inner forearm at 50 mL/hr with no complications. CPAP at night. Sling to left upper arm. Follow up: NIHSS, [facility] Friday at 0900, monitor neuro
--- NOTE | 2016-05-08 11:27 | NUR ---
A - NUT F/U. NEEDS SUPERVISION AT MEALS - GETTING BETTER AT FEEDING SELF. LABS: GLU 101 MEDS: GABAPENTIN, IVF, PROTONIX, KCL, ALDACTONE, LASIX, BOWEL/NAUSEA DIET: MECH-SOFT. INTAKE: BITES-100%, AVG ~49% - IMPROVING. ENSURE BID, ENSURE PUDDING @ L. NEEDS: [id number] KCAL, 68-82 G PRO D - INADEQUATE NUTRIENT INTAKE R/T DECREASED APPETITE AEB INTAKE RECORD. I - GOAL FOR INTAKE 50-75% BY NEXT ASSESSMENT. WILL INCREASE ENSURE TO TID. M/E - WILL MONITOR INTAKE. F/U IN 3-5 DAYS.
--- NOTE | 2016-05-08 13:11 | NUR ---
Significant Event: PT ALERT AND ORIENTED X3. EXPRESSIVE APHASIA. FOLLOWS COMMANDS. PERRLA. L)SIDE REMAINS FLACCID; RESPONDS TO PAINFUL STIMULI. R)UPPER EXTREMITY IS STRONG; R)LOWER EXTREMITY HAS MODERATE STRENGTH. 2-ASSIST/TURN Q2H/FULL LIFT. UP TO THE CHAIR THIS MORNING; RETURNED TO BED PER PHYSICAL THERAPY BEFORE LUNCH. VITAL SIGNS STABLE; ON ROOM AIR. EDEMA TO L)EXTREMITIES. PACEMAKER. INCONTINENT AND CONTINENT OF URINE; WILL USE URINAL AT TIMES. LARGE LOOSE BM THIS AM. MEDICATIONS CRUSHED AND GIVEN WITH VANILLA PUDDING; PT PREFERS TO EAT SOME SALTINE CRACKERS WITH AM MEDS WELL. NO COMPLAINTS OF PAIN. LIDOCAINE PATCH APPLIED TO UPPER BACK. MECHANICAL SOFT DIET WITH THIN LIQUIDS; PT NEEDS SUPERVISION WITH MEALS. GREAT APPETITE TODAY. IV TO R)AC INFUSING NS AT 25 ML/HR. HAS BEEN AT BEDSIDE ALL SHIFT. Follow up: FOLLOW UP HEAD SCAN ON FRIDAY, THEN PLAN TO TRANSFER TO [facility] AFTER AT 0900.
[2016-05-09 04:26] LABS: ALBUMIN 2.7 gm/dL (3.5-5.0); ALK PHOS 67 IU/L (33-138); ALT 29 IU/L (12-78); ANION GAP 10.2 (10.0-19.0); AST 20 IU/L (10-40); BLOOD UREA NITROGEN 15 mg/dL (6-24); CALCIUM 8.6 mg/dL (8.5-10.5); CHLORIDE 99 mMol/L (96-110); CO2 29 mMol/L (22-32); CREATININE 0.6 mg/dL (0.6-1.3); ESTIMATED GFR (MDRD EQUATION) > 60; POTASSIUM 4.2 mMol/L (3.7-5.1); SODIUM 134 mMol/L (135-145); TOTAL PROTEIN 6.5 g/dL (6.0-8.4)
--- NOTE | 2016-05-09 04:39 | NUR ---
Significant Event: patient is alert and oriented x3. VSS. follows commands. Pupils are 3mm and brisk. Denies N/T. Denies pain. Denies GRANT. Left facial droop. Left arm and leg are flaccid does slightly withdrawl to painful stimuli. Pacemaker in the left upper chest-paced. Keep SBP less than 150. Room air- lungs are clear to c/d in the bases. Tachypnea. Mechcanical soft diet with thin liquids. 1:1 feeder. Pills crushed with vanilla pudding. 2A full lift. PIV in right AC with NS at 25 ml/hr. Follow up: Plan for [facility]ER[facility]CHANIC HEL[facility] on Wednesday 05/10.
--- NOTE | 2016-05-09 15:07 | NUR ---
Significant Event: PT IS AAOX3. PUPIL EQUAL AND REACTIVE. NIHSS 13. DOES HAVE FAIRLY STRONG LEFT HAND GRASP BUT UNABLE TO RAISE ARM. LEFT LEG DOES NOT MOVE EXCEPT TO PAINFUL STIMULI. STUTTERS. APHASIC. LEFT UPPER LOBE HAS FINE RALES BILATERAL LOWER LOBES ARE CLEAR AND DIMINISHED. DID HAVE SMALL PERIOD WITH SOB. DID PRN TREATMENT AND FELT BETTER. CONTINENT/INCONTINENT. UP TO CHAIR FULL LIFT 2 ASSIST. IV R) AC RUNNING. LEFT FOOT DROP BOOT. LIDOCAINE PATCH TO LEFT FLANK. PLANS FOR [facility] TOMORROW. Follow up:LOC
--- NOTE | 2016-05-10 04:31 | NUR ---
Significant Event: PATIENT IS ALERT AND ORIENTED X3. VSS. FOLLOWS COMMANDS. DENIES PAIN. DENIES GRANT. DENIES N/T. NIHSS-12. PERRLA. LEFT FACIAL DROOP. SLIGHT LEFT HAND GRASP. LEFT LOWER EXTREMITY FLACCID. LEFT FOOT DROP BOOT. PACEMAKER IN LEFT UPPER CHEST-PACED WITH PVC's. EDEMA TO LEFT EXTREMITIES. ROOM AIR. TACHYPNIC. ENCOURAGE IS AND FLUTTER VALVE. INCONT OF URINE- WILL USE URINAL AT TIMES. LIKES PILLS CRUSHED WITH VANILLA PUDDING-CRACKERS IN BETWEEN BITES. MECHANICAL SOFT DIET WITH THIN LIQUIDS. 2A FULL LIFT. LAST BM 05/09-BOWELS ARE ACTIVE. NO IV ACCESS. Follow up: [facility] AT 0900 - 05/10
[2016-05-10 04:58] LABS: ALBUMIN 2.7 gm/dL (3.5-5.0); ALK PHOS 67 IU/L (33-138); ALT 47 IU/L (12-78); ANION GAP 12.8 (10.0-19.0); AST 29 IU/L (10-40); BLOOD UREA NITROGEN 12 mg/dL (6-24); CALCIUM 8.5 mg/dL (8.5-10.5); CHLORIDE 96 mMol/L (96-110); CO2 28 mMol/L (22-32); CREATININE 0.6 mg/dL (0.6-1.3); ESTIMATED GFR (MDRD EQUATION) > 60; POTASSIUM 3.8 mMol/L (3.7-5.1); SODIUM 133 mMol/L (135-145); TOTAL BILIRUBIN 0.9 mg/dL (0.0-1.5); TOTAL PROTEIN 6.5 g/dL (6.0-8.4)
--- NOTE | 2016-05-10 08:52 | NUR ---
PATIENT IS 80 YEAR OLD MAN [place]. HAD FALLEN AND HIT HIS HEAD ON 04/28 BUT DID NOT HAVE PROBLEMS UNTIL 05/01/16. ADMITTED FOR HEMORRHAGIC STROKE. NIHSS IS 13. PATIENT HAS EXPRESSIVE APHASIA BUT HAS IMPROVED. ORIENT X3. ABLE TO MOVE R SIDE WELL. UNABLE TO LIFT LEFT ARM BUT DOES HAVE LEFT HAND GRASP THAT IS WEAK. NO MOVEMENT IN LEFT LEG EXCEPT TO PAINFUL STIMULI. NO C/O NUMBNESS OR TINGLING. CLEAR AND DIMINISHED LUNG SOUNDS. ACTIVE BS. BM LAST 05/09/16. CONT/INCONTINENT. PILLS CRUSHED IN PUDDING. UP 2 ASSIST FULL LIFT. WILL GO TO [facility]. NO C/O PAIN.
== END 2016-05-10 09:35 | DRG 86 ==
LOC: GNTU 23:18
PROVIDERS: Hospitalist; Internal Medicine; Neurological Surgery; ADMIT Specialist
DX: S06.300A Unspecified focal traumatic brain injury without loss of consciousness, initial encounter (principal); I50.22 Chronic systolic (congestive) heart failure; G81.94 Hemiplegia, unspecified affecting left nondominant side; E87.1 Hypo-osmolality and hyponatremia; W18.30XA Fall on same level, unspecified, initial encounter; Z79.01 Long term (current) use of anticoagulants; I10 Essential (primary) hypertension; I25.10 Atherosclerotic heart disease of native coronary artery without angina pectoris; Z95.1 Presence of aortocoronary bypass graft; Z87.820 Personal history of traumatic brain injury; I25.2 Old myocardial infarction; Z95.5 Presence of coronary angioplasty implant and graft; G47.30 Sleep apnea, unspecified; Z95.3 Presence of xenogenic heart valve; Z95.0 Presence of cardiac pacemaker; I48.0 Paroxysmal atrial fibrillation; R47.02 Dysphasia; I65.21 Occlusion and stenosis of right carotid artery
CPT/HCPCS: C9113; J2270; J2405; J7030; Q9967

== ENCOUNTER 2016-05-10 09:55 | Inpatient (IN) | payer MEDICARE, BC ==
[~2016-05-10] VITALS: Ht 152.4 cm; Wt 63.3 kg
--- NOTE | ~2016-05-10 | HP ---
PATIENT'S NAME: ALTHEA MORRIS [facility] AGE: 80 Y [address] ROOM: [place] [address] LOCATION: [facility] ADMIT DATE: 05/10/2016 History & Physical DISCHARGE DATE: FAMILY PHYSICIAN: Vamshi Parikh MD ATTENDING PHYSICIAN: Reagan Velasuqez DATE OF SERVICE: 05/25/2016 The patient was seen and examined on 05/25/2016. CHIEF COMPLAINT: Pain and swelling, left knee. HISTORY: This 80-year-old male is currently admitted to inpatient rehab recovering from a stroke. He has some mild left hemiplegia, worse in the upper extremity. He had an intracerebral hemorrhage after falling. He lives in [place] with his . He has a 3-day history of some mild pain and swelling in his left knee. In 2003, he had an unicompartmental left total knee arthroplasty, which did well without complication and no infection. Five or six years ago, he had an episode of some pain and swelling and he was seen by Dr. Saunders, orthopedic surgeon in [place] who aspirated and injected the knee and it did well after that, until the current episode. He has had no fevers or chills. He says he may have injured it when he fell, he is not sure. He has noted slight warmth. It is not unstable. He is a little weaker on the left side since the intracerebral hemorrhage, so the lack of muscle control puts a little more stress on the left knee. He is currently undergoing 3 hours of therapy per day and the knee is interfering with that. 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 SURGICAL HISTORY: CABG x2. ALLERGIES: NONE TO MEDICATIONS. MEDICATIONS: 1. Aldactone. 2. Coreg. 3. Isordil. 4. Potassium chloride. PATIENT'S NAME: ALTHEA MORRIS [facility] AGE: 80 Y [address] ROOM: [address] [address] LOCATION: [facility] ADMIT DATE: 05/10/2016 History & Physical DISCHARGE DATE: FAMILY PHYSICIAN: Vamshi Parikh MD ATTENDING PHYSICIAN: Reagan Velasquez 5. Lasix. 6. Lipitor. 7. Neurontin. 8. Prevacid. 9. Albuterol. 10. Bengay. 11. Rosser nasal spray. 12. Nitrostat. FAMILY HISTORY: Positive for heart disease and hypertension. SOCIAL HISTORY: No history of smoking or alcohol use. Lives with his in [place]. He is . REVIEW OF SYSTEMS: No recent coughs, colds, fevers, chills, sore throats. He has had some slurred speech and weakness related to the hemorrhage. No dysuria or hematuria. No diarrhea. Some constipation. No skin changes. No malaise. No auditory or visual hallucinations. PHYSICAL EXAMINATION: GENERAL: He is awake, alert, a little slurred speech. VITAL SIGNS: Blood pressure is 120/60, pulse 74, respirations 16, temperature 98. HEENT: Atraumatic, normocephalic PERRL. EOMI. TMs clear. Throat clear. NECK: Supple. CHEST: Clear to auscultation. HEART: Regular rhythm. ABDOMEN: Soft and nontender without masses. NEUROLOGIC: He has marked weakness of his left upper extremity. Mild weakness of his left lower extremity. Right upper and lower extremities are normal. His left knee has a mild effusion, slight warmth, mild tenderness, range is 0 to 130 degrees. Drawer and Catracho's negative. No collateral laxity. He has good pulses. There is no ecchymosis. No muscle atrophy. Sensation intact in both lower extremities. Reflexes are trace and equal. DIAGNOSTIC DATA: X-rays of the left knee AP and lateral demonstrate an unicompartmental medial knee replacement. All components well fixed in excellent position. There is a mild effusion. There is some lateral joint space narrowing and osteophytes in the lateral and patellofemoral compartment. DIAGNOSIS: PATIENT'S NAME: ALTHEA MORRIS [facility] AGE: 80 Y [address] ROOM: [place] [address] LOCATION: [facility] ADMIT DATE: 05/10/2016 History & Physical DISCHARGE DATE: FAMILY PHYSICIAN: Vamshi Parikh MD ATTENDING PHYSICIAN: Reagan Velasquez Status post medial unicompartmental left total knee arthroplasty with degenerative arthritis in lateral and patellofemoral compartments. His white count is normal. IMPRESSION: 1. Degenerative arthritis, left knee in lateral and patellofemoral compartments, status post unicompartmental left total knee arthroplasty. 2. Recent intracerebral hemorrhage with left hemiparesis from hemorrhagic stroke. 3. Status post pacemaker. 4. Status post coronary artery bypass graft and stents. 5. Coronary artery disease. 6. Hypertension. 7. Peripheral neuropathy. PLAN: Risks and benefits were discussed. Time-out was performed. Consent was obtained. Left knee was sterilely prepped x3 and aspirated for 40 mL of yellowish, very slightly cloudy joint fluid which was sent for culture and sensitivity. Gram stain was negative for organisms. There were few white cells. He was injected with 80 mg Depo-Medrol, 5 mL 1% lidocaine, tolerated well. He will continue physical therapy and activity as tolerated. I will follow him along to see how it progresses and check his cultures. MD JANINA DOUGLAS/mary /[id number] D: [id number] T: [id number] HISTORY & PHYSICAL
--- NOTE | ~2016-05-10 | CON ---
PATIENT'S NAME: ALTHEA MORRIS [facility] AGE: 80 Y [address] ROOM: [address] [place], [place] [address] LOCATION: [facility] ADMIT DATE: 05/10/2016 Consultation DISCHARGE DATE: FAMILY PHYSICIAN: Vamshi Parikh MD ATTENDING PHYSICIAN: Reagan Serra DATE OF CONSULTATION: 05/21/2016 REFERRING PHYSICIAN: WILLIAM NYE MD Team members reporting include: Dr. Serra; Elisa Burns, social welfare research worker; Christina Marie, RN; Merry Dhaliwal, PT; Isabela Zuñiga, PT; Jaky Banerjee, OT; Angle Esqueda, Speech Therapy; Yojana Rainey, therapeutic rec; and Sister Tri Senior, Pastoral Care. CURRENT STATUS: Taryn Ma is an 80-year-old man, admitted to our inpatient rehab unit following a stroke. The patient is incontinent of bowel and bladder. No skin or pain issues. He is on a cardiac diet. Prealbumin is 16, taking Ensure Enlive t.i.d. and Ensure Pudding at lunch. The patient can transfer sit to stand, moderate assistance; bed to chair, minimal assistance to moderate assistance. He can walk about 10 feet, it is still a dependent task. He can sit on the edge of the bed at standby. He has met 4/5 short-term PT goals. The patient can dress his upper body at moderate assistance; lower body max, grooming standby, bathing moderate assistance, feeding standby, sitting balance overall is improving. His left arm is improving. He has met 2/4 short-term OT goals. The patient's comprehension is at standby; language and expression, moderate assistance. The patient does stutter and needs cues to slow down when he is talking. Memory, minimal assistance. Problem solving, standby. Swallowing, standby, needs to be monitored in the dining room. Car transfers have not been done yet. He is using his left upper extremity for cards and Jose's. The patient has been very open to pastoral care. DISCHARGE PLAN: The patient is receiving 3 hours of PT, OT, and speech Friday through Friday. The patient has daily rehab, nursing, and physiatry involvement as well as therapeutic recreational services 4 days per week. The patient has shown functional improvement and is progressing. Please see his plan of care for specific goals. Plan is for patient to discharge in approximately five weeks. It is unknown whether the patient will be able to return to home or whether the patient will need to go to a half-way facility. ELISA BURNS FOR REAGAN SERRA MD PATIENT'S NAME: ALTHEA MORRIS [facility] AGE: 80 Y [address] ROOM: [place] [address] LOCATION: [facility] ADMIT DATE: 05/10/2016 Consultation DISCHARGE DATE: FAMILY PHYSICIAN: Vamshi Parikh MD ATTENDING PHYSICIAN: Reagan Serra TD/vangiel /[id number] d: t: 05/22/16 1823, CONSULTATION REPORT
--- NOTE | ~2016-05-10 | CON ---
PATIENT'S NAME: ALTHEA MORRIS [facility] AGE: 80 Y [address] ROOM: [address] [place], [place] [address] LOCATION: [facility] ADMIT DATE: 05/10/2016 Consultation DISCHARGE DATE: FAMILY PHYSICIAN: Vamshi Parikh MD ATTENDING PHYSICIAN: Reagan Serra DATE OF CONSULTATION: 05/14/2016 REFERRING PHYSICIAN: WILLIAM NYE MD Team members reporting include Dr. Serra; lEisa Burns, vp digital marketing social media and crm; Christina Marie, RN; Merry Dhaliwal, PT; Isabela Zuñiga, PT; Jaky Banerjee, OT; Angle Esqueda, Speech Therapy; Yojana Rainey, therapeutic rec; and Sister Tri Senior, Pastoral Care; and Antoinette Deluca, pharmacist. CURRENT STATUS: Taryn Ma is an 80-year-old man, admitted to our inpatient rehab unit on May 10, 2016, following a hemorrhagic stroke. 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 The patient is incontinent of bowel and bladder at times. Skin integrity is good. Takes Tylenol for pain. The patient is on a cardiac diet. Taking Ensure t.i.d. ensure pudding at lunch. He is supposed to have supervised eating for safety. The patient can transfer [id number] at moderate to max assistance; [id number], moderate to max assistance; [id number], max to dependent. He can complete a slide board transfer or scoot transfer at moderate assistance. He does have some pushing and his sitting balance overall is poor. The patient has his goals set for minimal assistance for transfers all the way up to contact guard assistance. The patient can dress his upper and lower body at dependent; grooming, standby; bathing, dependent; toilet transfers, dependent; and feeding, stand-by. He is able to grasp a little bit with his left hand. His goals will be set anywhere from minimal to moderate assistance. Comprehension is at minimal assistance. Language and expression, mod assistance. Memory moderate to minimal assistance. Problem solving, max assistance to standby, and swallowing at standby assistance on a regular diet. The patient is impulsive when he eats and does need cueing to slow down. Therapeutic rec just did their initial evaluation. The patient has been very open to pastoral care and there are no pharmacy concerns. DISCHARGE PLAN: The patient is receiving 3 hours of PT, OT, and speech Friday through Friday. The patient has daily rehab, nursing, and physiatry involvement as well therapeutic recreational services 4 days per week. The patient has shown functional improvement and is progressing. Please see his plan of care for specific goals. Plan is for patient to discharge in approximately 6 weeks. The patient's goal would be able to return to home, unsure if this will happen PATIENT'S NAME: ALTHEA MORRIS [facility] AGE: 80 Y [address] ROOM: [place] [address] LOCATION: [facility] ADMIT DATE: 05/10/2016 Consultation DISCHARGE DATE: FAMILY PHYSICIAN: Vamshi Parikh MD ATTENDING PHYSICIAN: Reagan Serra due to the impact of the stroke. ELISA BURNS FOR REAGAN SERRA MD TD/modl /[id number] d: 05/22/16 1808 t: 06/27/16 1632, CONSULTATION REPORT
--- NOTE | ~2016-05-10 | CON ---
PATIENT'S NAME: ALTHEA MORRIS [facility] AGE: 80 Y [address] ROOM: [address] [place] [address] LOCATION: [facility] ADMIT DATE: 05/10/2016 Consultation DISCHARGE DATE: FAMILY PHYSICIAN: Vamshi Parikh MD ATTENDING PHYSICIAN: Reagan Serra DATE OF CONSULTATION: 05/28/2016 REFERRING PHYSICIAN: WILLIAM NYE MD Team members reporting include Dr. Serra; Elisa Burns, executive secretary social welfare; Christina Marie, RN; Merry Dhaliwal, PT; Isabela Antonio, PT; Jaky Banerjee, OT; Angle Esqueda, Speech Therapy; Yojana Rainey, therapeutic rec; and Sister Tri Senior, Pastoral Care. CURRENT STATUS: Althea is an 80-year-old man admitted to our inpatient rehab unit following a hemorrhagic stroke. He is currently continent of bowel and bladder. He does occasionally have incontinence of bladder, especially spilling urinal. His bottom is slightly red with no open areas. No pain issues. The patient can transfer sit to supine and supine to sit at minimal assistance; sit to stand and stand to sit, minimal assistance. He can complete a scoot transfer at contact guard assistance. He is able to walk 150 feet with a front-wheeled walker at moderate assistance. Quality overall is poor. He is very distractible. He has met 4/5 short-term PT goals. The patient can dress his upper body at minimal assistance; lower body, dependent; grooming, standby assistance; bathing, moderate assistance; toilet transfers, moderate assistance; and toileting, dependent. His left upper extremity is improving, and he has met 1/5 short-term OT goals. The patient's comprehension, language, and expression are at standby; memory and problem solving, standby; swallow is currently at standby to mod I. The patient can complete car transfers at minimal assistance. He does require more assistance when he is distracted. Scanning overall is improving. The patient has been very open to pastoral care. DISCHARGE PLAN: The patient is receiving 3 hours of PT, OT, and speech Friday through Friday. The patient has daily rehab, nursing, and physiatry involvement as well as therapeutic recreational services 4 days per week. The patient has shown functional improvement and is progressing. Please see his plan of care for specific goals. Plan is for the patient to discharge in approximately 4 weeks. Plan is for the patient to return to home with his near [place]. PATIENT'S NAME: ALTHEA MORRIS [facility] AGE: 80 Y [address] ROOM: [place] [address] LOCATION: [facility] ADMIT DATE: 05/10/2016 Consultation DISCHARGE DATE: FAMILY PHYSICIAN: Vamshi Parikh MD ATTENDING PHYSICIAN: Reagan Serra FOR REAGAN SERRA MD TD/modl /[id number] d: 06/07/16 1711 t: 06/27/16 1638, CONSULTATION REPORT
--- NOTE | ~2016-05-10 | HP ---
PATIENT'S NAME: ALTHEA MORRIS [facility] AGE: 80 Y [address] ROOM: [address] [address] LOCATION: [facility] ADMIT DATE: 05/10/2016 History & Physical DISCHARGE DATE: FAMILY PHYSICIAN: Vamshi Parikh MD ATTENDING PHYSICIAN: Reagan Velasquez DATE OF SERVICE: This 80-year-old gentleman is admitted for continuous medical treatment and intensive rehabilitation on 05/10/2016 at [facility]. He is status post falling incident with left hemiplegia secondary to hemorrhagic stroke with slurring of speech and with unstable gait, dependent activities of daily and self-care. Deemed not a surgical candidate at the present time. He is at the present time alert, fairly able to follow instructions, oriented with some cuing; however, he is at the present time with the following vitals: Blood pressure 128/60, temperature 98.0, pulse 72, and respirations 18. He is 5 feet 4 inches tall and weighs 72.0 kg. ALLERGIES: NO REPORTED DRUG ALLERGIES. HE IS IMPULSIVE AND HAS DIFFICULTY WITH FEEDING. PAST HISTORY OF SIGNIFICANCE FOLLOWS: 1. HISTORY OF WI IN 1986. 2. STATUS POST CABG X3 VESSELS AFTER THAT. 3. STATUS POST STENTING ABOUT 8 VESSELS REPORTED IN 2009. 4. STATUS POST PICC VALVE REPLACEMENT PLUS 2 VESSELS BYPASS GRAFTING AND 1 STENT PLACEMENT. 5. PAROXYSMAL ATRIAL FIBRILLATION WITH PERMANENT PACEMAKER PLACEMENT. 6. NOCTURNAL DYSPNEA, USES CPAP AT NIGHT. 7. IN 2012, HE FELL AND POSSIBLY HE HAD SEIZURE DISORDER. 8. HISTORY OF INTRACRANIAL BLEEDING AND DID WELL. HE IS AT THE PRESENT TIME ON THE FOLLOWING MEDICATIONS: 1. SODIUM CHLORIDE 1000 ML BAG IV FLOOR STOCK AT 25 ML PER HOUR. 2. LIPITOR 40 MG P.O. DAILY. 3. COREG 3.125 MG P.O. TWICE DAILY. 4. DOCUSATE SODIUM 200 MG TWICE DAILY P.O. 5. LASIX 60 MG P.O. IN THE MORNING, HOLD IF SYSTOLIC BLOOD PRESSURE LESS AND/OR EQUAL THAN 110. 6. IMDUR 30 MG P.O. DAILY. 7. LIDODERM PATCH 5% AT THE RIB AREA Q.12 HOURS ON AND 12 HOURS OFF. PATIENT'S NAME: ALTHEA MORRIS [facility] AGE: 80 Y [address] ROOM: [address] [address] LOCATION: [facility] ADMIT DATE: 05/10/2016 History & Physical DISCHARGE DATE: FAMILY PHYSICIAN: Vamshi Parikh MD ATTENDING PHYSICIAN: Reagan Velasquez 8. PROTONIX 40 MG P.O. DAILY. 9. MIRALAX 17 G P.O. DAILY. 10. K TABLET 20 MEQ P.O. DAILY. 11. ALDACTONE 25 MG P.O. DAILY. 12. VITAMIN E 800 MG P.O. DAILY. 13. NEURONTIN 100 MG 3 TIMES DAILY. 14. NACL 250 MG BAG IV PER PROTOCOL P.R.N. 15. TYLENOL 650 Q.6 HOURS, DO NOT EXCEED ACETAMINOPHEN 4 G Q.24 HOURS. 16. BENGAY, APPLY TO LEFT TOPICAL 3 TIMES DAILY NEEDED P.R.N. 17. MORPHINE SULFATE 2 MG IV Q.4 HOURS P.R.N. 18. NITROSTAT 0.4 MG SUBLINGUALLY NEEDED P.R.N. 19. ZOFRAN 4 MG IV P.R.N. NEEDED. 20. SODIUM CHLORIDE 10 ML SYRINGE PER PROTOCOL IV NEEDED. 21. ULTRAM 50 MG P.O. Q.6 HOURS NEEDED. 22. ALBUTEROL SULFATE 2.5 MG INHALATION Q.4 HOURS. 23. SALT TABLETS 2 G P.O. B.I.D. FOR 5 DAYS. ASSESSMENT AND PLAN: At the present time, the patient is not put on Lovenox because of intracranial bleed. He is able to, at the present time, transfer with maximum assistance of 1 and all his transfers practically with cuing. He can stand with maximum assistance of 2 persons and he is working on sitting at the edge of bed for about 10-12 minutes with maximum assistance. We will put on intensive PT, OT, speech 3 hours per day, 15 hours per week for the coming 3-4 weeks aiming to discharge on modified independence. We will send in a.m. for urinalysis, CBC with automated differential, CMS, and prealbumin. We will keep on cardiac prudent with liquids and help during feeding. We will keep on Dr. Ceja, Hospitalist, Dr. Harris, and Dr. Doll, neurologist, to follow as necessary. All the above was explained to him and his , she verbalized understanding and in agreement. MD OLIVE MARTINEZ/vangiel PATIENT'S NAME: ALTHEA MORRIS [facility] AGE: 80 Y [address] ROOM: [place] [address] LOCATION: [facility] ADMIT DATE: 05/10/2016 History & Physical DISCHARGE DATE: FAMILY PHYSICIAN: Vamshi Parikh MD ATTENDING PHYSICIAN: Reagan Velasquez /[id number] D: [id number] T: [id number] HISTORY & PHYSICAL
--- NOTE | ~2016-05-10 | CON ---
PATIENT'S NAME: ALTHEA MORRIS [facility] AGE: 80 Y [address] ROOM: [address] [place] [address] LOCATION: [facility] ADMIT DATE: 05/10/2016 Consultation DISCHARGE DATE: FAMILY PHYSICIAN: Vamshi Parikh MD ATTENDING PHYSICIAN: Reagan Serra DATE OF CONSULTATION: 06/04/2016 REFERRING PHYSICIAN: WILLIAM NYE MD Team members reporting include Dr. Serra; Elisa Burns, social services analyst; Sugar Morris, RN; Merry Dhaliwal, PT; Isabela Antonio, PT; Jaky Banerjee, OT; Angle Esqueda, Speech Therapy; Yojana Rainey, therapeutic rec; and Sister Tri Senior, Pastoral Care. CURRENT STATUS: Althea is an 80-year-old man admitted to our inpatient rehab unit following a hemorrhagic stroke. The patient is continent of bowel and bladder. No skin issues. The patient is on a cardiac diet, eating 75% to 100%. The patient does take Ensure t.i.d., Ensure pudding at lunch. He is not currently at a nutritional risk, with good intake. The patient can complete sit to supine and supine to sit transfers at standby assistance with extra time; sit to stand and stand to sit transfers, contact guard assistance; and bed to chair transfers, contact guard assistance. He can walk 150 feet with a front- wheeled walker at contact guard assistance. He can walk to the bathroom. He does need lots of cues, and it is best to stand on his left side. He can climb 4 stairs; contact guard assistance going up, minimal assistance coming down. He has met 4/4 short-term PT goals. The patient can dress his upper body at standby; lower body, minimal assistance; grooming, standby; bathing, minimal assistance; toilet and shower transfers, contact guard assistance; and feeding, standby assistance. The patient can complete toileting tasks that involves voiding at minimal assistance. Overall, his left upper extremity is improving. He has met 3/5 short-term OT goals. The patient's comprehension is at modified independence; language and expression, standby; memory and problem solving, standby; and swallowing, mod I. The patient can complete car transfers at minimal assistance with [id number] cues using left upper extremity for many things. Car transfers scheduled for Friday with his . The patient has been very open to pastoral care. DISCHARGE PLAN: The patient is receiving 3 hours of PT, OT, and speech Friday through Friday. The patient has daily rehab, nursing, and physiatry involvement as well as therapeutic recreational services 4 days per week. The patient has shown functional improvement and is progressing. Please see his plan of care for specific goals. Plan is for the patient to discharge in approximately 2 to 3 weeks. Plan is for the patient to return to home with his near [place]. PATIENT'S NAME: ALTHEA MORRIS [facility] AGE: 80 Y [address] ROOM: [address] [address] LOCATION: [facility] ADMIT DATE: 05/10/2016 Consultation DISCHARGE DATE: FAMILY PHYSICIAN: Vamshi Parikh MD ATTENDING PHYSICIAN: Reagan Serra ELISA BURNS FOR REAGAN SERRA MD TD/modl /[id number] d: 06/07/163 t: 06/27/16 1641, CONSULTATION REPORT
--- NOTE | ~2016-05-10 | DS ---
PATIENT'S NAME: ALTHEA MORRIS [facility] AGE: 80 Y [address] ROOM: [address] [place], [place] [address] LOCATION: [facility] ADMIT DATE: 05/10/2016 Discharge Summary DISCHARGE DATE: 06/20/2016 FAMILY PHYSICIAN: Vamshi Parikh MD ATTENDING PHYSICIAN: Jessica Serra This 80-year-old gentleman was admitted to rehab unit at [facility] in [place], [place], on 05/10/2016. He was discharged to home on 06/20/2016. 1. Unstable gait. 2. Dependent activities of daily and self-care. 3. 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 4. He was put on intensive rehab, he is doing well. At the present time alert, oriented, feels well. Vitals are as follows. Blood pressure 110/67, temperature 97.8, pulse 70, respirations 13. He can ambulate 150 feet x2 and 300 feet x1 with close standby assistance for steadying. He is at the present time to continue on outpatient PT, OT, and Speech 3 times per week for the coming 4 weeks. I will see him thereafter. Follow up with his family physician as soon as possible. Follow up with Dr. Harris as he sees fit. He is on the following medications; 1. Lipitor 40 mg p.o. daily. 2. Coreg 3.125 mg p.o. b.i.d. 3. Lasix 60 mg p.o. in the morning. 4. Neurontin 100 mg t.i.d. 5. Isordil 20 mg p.o. b.i.d. 6. Lidoderm patch one patch may remain in place for 12 hours. Apply to intact skin, give for 10 days. 7. Protonix 40 mg p.o. daily. 8. KCl 20 mEq p.o. daily. 9. Aldactone 25 mg p.o. daily. 10. Flomax 0.4 mg p.o. daily. 11. Benadryl 12.5 mg at bedtime. 12. Tylenol 650 q.6 hours, gets 32 of them, do not exceed acetaminophen 4 grams q.24 hours. 13. Bengay, Icy 6% apply topical. 14. Zofran give for one week 4 mg p.o. q.6 hours as needed. 15. [place] nasal spray as needed. 16. Ultram 50 mg p.o. q.6 hours, 36 of them. PATIENT'S NAME: ALTHEA MORRIS [facility] AGE: 80 Y [address] ROOM: [place] [address] LOCATION: [facility] ADMIT DATE: 05/10/2016 Discharge Summary DISCHARGE DATE: 06/20/2016 FAMILY PHYSICIAN: Vamshi Parikh MD ATTENDING PHYSICIAN: Jessica Serra FINAL DIAGNOSES: 1. Unstable gait. 2. Dependent activities of daily and self-care. 3. 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 4. He is with history of extensive cardiac problems, history of myocardial infarction in 1986. 5. Status post CABG x3 vessels. 6. Status post stenting, frequent, at least 8 vessels reported in 2009. 7. 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 8. Paroxysmal atrial fibrillation, permanent pacemaker placement. 9. Nocturnal dyspnea with CPAP at night. 10. Possible seizure disorder. At the present time, we have not recorded any seizures, he is stable. 11. History of intracranial bleeding before and did well, exact time unknown. 12. Dyslipidemia. 13. Hypertension. 14. Chronic obstructive pulmonary disease. At the present time, the patient is not to drive and/or operate any mechanical device until he is evaluated. He should follow with his family physician as soon as possible. I will see him in 4 weeks. A script has been given for him for PT, OT, and Speech 3 times per week for the coming 4 weeks. He must follow up with Dr. Harris as he sees fit. All the above was explained to him and his , they verbalized understanding and agreement. JESSICA SERRA MD WMS/modl /[id number] d: 06/21/16 0139 t: 06/21/16 0832, DISCHARGE SUMMARY
--- NOTE | ~2016-05-10 | CON ---
PATIENT'S NAME: ALTHEA MORRIS [facility] AGE: 80 Y [address] ROOM: [id number] [place], [place] [address] LOCATION: [facility] ADMIT DATE: 05/10/2016 Consultation DISCHARGE DATE: 06/21/2016 FAMILY PHYSICIAN: Vamshi Parikh MD ATTENDING PHYSICIAN: Reagan Serra DATE OF CONSULTATION: 06/11/2016 REFERRING PHYSICIAN: Ta Ceja MD Team members reporting include Dr. Serra; Elisa Burns, oncology social worker; Christina Marie, RN; Merry Dhaliwal, PT; Radha Ybarra, OT; Angle Esqueda, Speech Therapy; Yojana Rainey, therapeutic rec; and Sister Tri Senior, Pastoral Care. CURRENT STATUS: Althea is an 80-year-old man admitted to our inpatient rehab unit following a hemorrhagic stroke. He is currently continent of bowel and bladder. His bottom is red, but it is not open. No pain issues. The patient is on a cardiac diet. Intake is good. He can transfer sit to supine and supine to sit at standby; sit to stand, contact guard assistance to standby; and bed to chair, standby assistance to contact guard assistance. He can walk 150 feet with a front-wheeled walker at contact guard assistance. He is retropulsive and impulsive at times. He can climb 8 stairs with 2 railings at contact guard assistance. He has had overall better motor planning. He is able to walk with a single-point cane at contact guard assistance. He can dress his upper body at standby; lower body, minimal assistance; grooming, standby; bathing, minimal assistance; toilet and shower transfers, contact guard assistance; and toileting, moderate assistance. He has met 0/6 short-term OT goals. His left upper extremity is improving, and we plan to do a home safety evaluation soon. The patient's comprehension is at modified independence; language and expression, standby; memory and problem solving, standby; and swallowing, mod I. The patient can complete car transfers at contact guard assistance. The patient has been very open to pastoral care. The patient is not to lie flat after meals. He is coughing a lot. He is supposed to talk slower and pause. DISCHARGE PLAN: The patient is receiving 3 hours of PT, OT, and speech Friday through Friday. The patient has daily rehab, nursing, and physiatry involvement as well as therapeutic recreational services 4 days per week. The patient has shown functional improvement and is progressing. Please see his plan of care for specific goals. Plan is for the patient to discharge in approximately 10 to 14 days. Plan is for the patient to return to home with near [place]. PATIENT'S NAME: ALTHEA MORRIS [facility] AGE: 80 Y [address] ROOM: [place] [address] LOCATION: [facility] ADMIT DATE: 05/10/2016 Consultation DISCHARGE DATE: 06/21/2016 FAMILY PHYSICIAN: Vamshi Parikh MD ATTENDING PHYSICIAN: Reagan Serra ELISA BURNS FOR REAGAN SERRA MD TD/modl /[id number] d: 06/28/16 1807 t: 07/22/16 1402, CONSULTATION REPORT
--- NOTE | ~2016-05-10 | CON ---
PATIENT'S NAME: ALTHEA MORRIS [facility] AGE: 80 Y [address] ROOM: [address] [place], [place] [address] LOCATION: [facility] ADMIT DATE: 05/10/2016 Consultation DISCHARGE DATE: FAMILY PHYSICIAN: Vamshi Parikh MD ATTENDING PHYSICIAN: Reagan Serra DATE OF CONSULTATION: 05/14/2016 REFERRING PHYSICIAN: WILLIAM NYE MD Team members reporting include Dr. Serra; Elisa Burns, manager social media; Christina Marie, RN; Merry Dhaliwal, PT; Isabela Zuñiga, PT; Jaky Banerjee, OT; Angle Esqueda, Speech Therapy; Yojana Rainey, therapeutic rec; and Sister Tri Senior, Pastoral Care; and Antoinette Deluca, pharmacist. CURRENT STATUS: Taryn Ma is an 80-year-old man, admitted to our inpatient rehab unit on May 10, 2016, following a hemorrhagic stroke. 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 The patient is incontinent of bowel and bladder at times. Skin integrity is good. Takes Tylenol for pain. The patient is on a cardiac diet. Taking Ensure t.i.d. ensure pudding at lunch. He is supposed to have supervised eating for safety. The patient can transfer [id number] at moderate to max assistance; edctwj-ya-enp, moderate to max assistance; wjq-mq-gfzdl, max to dependent. He can complete a slide board transfer or scoot transfer at moderate assistance. He does have some pushing and his sitting balance overall is poor. The patient has his goals set for minimal assistance for transfers all the way up to contact guard assistance. The patient can dress his upper and lower body at dependent; grooming, standby; bathing, dependent; toilet transfers, dependent; and feeding, stand-by. He is able to grasp a little bit with his left hand. His goals will be set anywhere from minimal to moderate assistance. Comprehension is at minimal assistance. Language and expression, mod assistance. Memory moderate to minimal assistance. Problem solving, max assistance to standby, and swallowing at standby assistance on a regular diet. The patient is impulsive when he eats and does need cueing to slow down. Therapeutic rec just did their initial evaluation. The patient has been very open to pastoral care and there are no pharmacy concerns. DISCHARGE PLAN: The patient is receiving 3 hours of PT, OT, and speech Friday through Friday. The patient has daily rehab, nursing, and physiatry involvement as well therapeutic recreational services 4 days per week. The patient has shown functional improvement and is progressing. Please see his plan of care for specific goals. Plan is for patient to discharge in approximately 6 weeks. The patient's goal would be able to return to home, unsure if this will happen PATIENT'S NAME: ALTHEA MORRIS [facility] AGE: 80 Y [address] ROOM: [place] [address] LOCATION: [facility] ADMIT DATE: 05/10/2016 Consultation DISCHARGE DATE: FAMILY PHYSICIAN: Vamshi Parikh MD ATTENDING PHYSICIAN: Reagan Serra due to the impact of the stroke. ELISA BURNS FOR REAGAN SERRA MD TD/modl /[id number] d: t: 05/22/16 1821, CONSULTATION REPORT
--- NOTE | ~2016-05-10 | CON ---
PATIENT'S NAME: ALTHEA MORRIS [facility] AGE: 80 Y [address] ROOM: [address] [place], [place] [address] LOCATION: [facility] ADMIT DATE: 05/10/2016 Consultation DISCHARGE DATE: FAMILY PHYSICIAN: Vamshi Parikh MD ATTENDING PHYSICIAN: Reagan Serra DATE OF CONSULTATION: 05/21/2016 REFERRING PHYSICIAN: WILLIAM NYE MD Team members reporting include: Dr. Serra; Elisa Burns, social work supervisor; Christina Marie, RN; Merry Dhaliwal, PT; Isabela Zuñiga, PT; Jaky Banerjee, OT; Angle Esqueda, Speech Therapy; Yojana Rainey, therapeutic rec; and Sister Tri Senior, Pastoral Care. CURRENT STATUS: Taryn Ma is an 80-year-old man, admitted to our inpatient rehab unit following a stroke. The patient is incontinent of bowel and bladder. No skin or pain issues. He is on a cardiac diet. Prealbumin is 16, taking Ensure Enlive t.i.d. and Ensure Pudding at lunch. The patient can transfer sit to stand, moderate assistance; bed to chair, minimal assistance to moderate assistance. He can walk about 10 feet, it is still a dependent task. He can sit on the edge of the bed at standby. He has met 4/5 short-term PT goals. The patient can dress his upper body at moderate assistance; lower body max, grooming standby, bathing moderate assistance, feeding standby, sitting balance overall is improving. His left arm is improving. He has met 2/4 short-term OT goals. The patient's comprehension is at standby; language and expression, moderate assistance. The patient does stutter and needs cues to slow down when he is talking. Memory, minimal assistance. Problem solving, standby. Swallowing, standby, needs to be monitored in the dining room. Car transfers have not been done yet. He is using his left upper extremity for cards and Jose's. The patient has been very open to pastoral care. DISCHARGE PLAN: The patient is receiving 3 hours of PT, OT, and speech Friday through Friday. The patient has daily rehab, nursing, and physiatry involvement as well as therapeutic recreational services 4 days per week. The patient has shown functional improvement and is progressing. Please see his plan of care for specific goals. Plan is for patient to discharge in approximately five weeks. It is unknown whether the patient will be able to return to home or whether the patient will need to go to a retirement facility. ELISA BURNS FOR REAGAN SERRA MD PATIENT'S NAME: ALTHEA MORRIS [facility] AGE: 80 Y [address] ROOM: [place] [address] LOCATION: [facility] ADMIT DATE: 05/10/2016 Consultation DISCHARGE DATE: FAMILY PHYSICIAN: Vamshi Parikh MD ATTENDING PHYSICIAN: Reagan Serra TD/vangiel /[id number] d: 05/22/16 1809 t: 06/27/16 1635, CONSULTATION REPORT
--- NOTE | ~2016-05-10 | CON ---
PATIENT'S NAME: ALTHEA MORRIS [facility] AGE: 80 Y [address] ROOM: [address] [place], [place] [address] LOCATION: [facility] ADMIT DATE: 05/10/2016 Consultation DISCHARGE DATE: 06/21/2016 FAMILY PHYSICIAN: Vamshi Parikh MD ATTENDING PHYSICIAN: Reagan Serra DATE OF CONSULTATION: 06/18/2016 REFERRING PHYSICIAN: Ta Ceja MD Team members reporting include Dr. Serra; Elisa Burns, social media intern; Christina Marie, RN; Isabela Llamas, PT; Merry Dhaliwal, PT; Jaky Banerjee, OT; Angle Esqueda, Speech Therapy; Yojana Rainey, therapeutic rec; and Sister Tri Senior, Pastoral Care. CURRENT STATUS: Taryn Ma is an 80-year-old man, admitted to our inpatient rehab unit after hemorrhagic CVA. The patient is continent of bowel and bladder. No skin issues. The patient does have a Lidoderm patch for pain. The patient can get in and out of bed at modified independence. He is walking 300 feet with a front-wheeled walker at standby assistance and he can climb 12 stairs at contact guard assistance with a front-wheeled walker. The patient can dress his upper and lower body at standby; grooming mod I; bathing, toilet transfers, and shower transfers, standby; toileting and feeding, standby. He does have occasional loss of balance. The patient has met 10/13 long-term OT goals. It is recommended that he have grab bars, toilet riser, and a shower chair at home which his has already secured. The patient's comprehension is at mod I, language and expression, standby. Memory and problem solving, standby to mod I, and swallowing mod I. the patient can complete car transfers at standby. The patient did have a home safety evaluation and did very well. The patient has been very open to pastoral care. DISCHARGE PLAN: The patient is receiving 3 hours of PT, OT, and speech Friday through Friday. The patient has daily rehab, nursing, and physiatry involvement as well as therapeutic recreational services 4 days per week. The patient has shown functional improvement and is progressing. Please see his plan of care for specific goals. Plan is for patient to discharge on Friday, June 21, 2016. The patient will have outpatient therapy services. ELISA BURNS FOR REAGAN SERRA MD TD/mary PATIENT'S NAME: ALTHEA MORRIS [facility] AGE: 80 Y [address] ROOM: [place] [id number] LOCATION: [facility] ADMIT DATE: 05/10/2016 Consultation DISCHARGE DATE: 06/21/2016 FAMILY PHYSICIAN: Vamshi Parikh MD ATTENDING PHYSICIAN: Reagan Serra /[id number] d: 06/28/16 1803 t: 07/22/16 1405, CONSULTATION REPORT
[~2016-05-10 09:55] MED LIST: ALDACTONE25 MG PO; CENTRUM SILVER1 TAB PO; ELIQUIS2.5 MG PO; IRON GLYCINATE PO; ISORDIL20 MG PO; K-TAB ER20 MEQ PO; LASIX20 MG PO; LIDODERM1 EACH TRANS; NEURONTIN100 MG PO; NITROSTAT0.4 MG PO; PANTOPRAZOLE SO40 MG PO; PRAVACHOL40 MG PO; TYLENOL325 MG PO; VITAMIN D1000 UNIT PO; [UNRECOGNIZED DRUG - OTHER] NOSE
[2016-05-11 03:57] LABS: BILIRUBIN URINE NEGATIVE (NEGATIVE); BLOOD URINE NEGATIVE /UL (NEGATIVE); COLOR URINE YELLOW (YELLOW); GLUCOSE URINE NEGATIVE (NEGATIVE); KETONE URINE NEGATIVE (NEGATIVE); LEUKOCYTES URINE NEGATIVE /UL (NEGATIVE); NITRITE URINE NEGATIVE (NEGATIVE); PROTEIN URINE NEGATIVE (NEGATIVE); SPEC GRAVITY URINE 1.015 (1.003-1.035); TURBIDITY URINE 1+ (CLEAR); UROBILINOGEN URINE 1 mg/dL (NORMAL)
[2016-05-11 04:10] LABS: AMORPHOUS URINE 2+ (NEGATIVE); BACTERIA URINE NEGATIVE (NEGATIVE); EPITHELIAL URINE NEGATIVE #/HPF (NEGATIVE); RBC URINE RARE #/HPF (NEGATIVE); WBC URINE RARE #/HPF (NEGATIVE)
[2016-05-11 05:03] LABS: BASOPHIL # 0.1 K/uL (0.0-0.2); BASOPHIL % 0.6 %; EOSINOPHIL # 0.5 K/uL (0.0-0.5); EOSINOPHIL % 5.3 %; HEMOGLOBIN 12.3 g/dL (11.0-16.0); IMMATURE GRANULOCYTE % 0.4 %; LYMPHOCYTE # 0.8 K/uL (0.8-4.0); LYMPHOCYTE % 8.8 %; MCH 29.7 pg (27.0-34.0); MCHC 33.2 gm/dL (32.0-36.5); MONOCYTE # 0.9 K/uL (0.0-1.0); MONOCYTE % 9.7 %; MPV 9.3 fl (9.4-12.4); NEUTROPHIL # (ANC) 6.8 K/uL (1.4-9.0); NEUTROPHIL % 75.2 %; NRBC % 0 /100WBC (0-0.00); RBC 4.14 M/uL (3.50-5.50); RDW-CV 13.3 % (11.9-14.6)
[2016-05-11 05:07] LABS: MCV 89.4 fl (83.0-98.0); PLATELET COUNT 220 K/uL (150-450)
[2016-05-11 05:20] LABS: ALBUMIN 2.7 gm/dL (3.5-5.0); ALK PHOS 69 IU/L (33-138); ALT 55 IU/L (12-78); ANION GAP 9.4 (10.0-19.0); AST 33 IU/L (10-40); BLOOD UREA NITROGEN 18 mg/dL (6-24); CALCIUM 8.7 mg/dL (8.5-10.5); CHLORIDE 98 mMol/L (96-110); CO2 32 mMol/L (22-32); CREATININE 0.8 mg/dL (0.6-1.3); ESTIMATED GFR (MDRD EQUATION) > 60; POTASSIUM 4.4 mMol/L (3.7-5.1); SODIUM 135 mMol/L (135-145); TOTAL BILIRUBIN 0.9 mg/dL (0.0-1.5); TOTAL PROTEIN 6.5 g/dL (6.0-8.4)
[2016-05-14 06:00] LABS: ALBUMIN 2.9 gm/dL (3.5-5.0); ANION GAP 10.8 (10.0-19.0); BLOOD UREA NITROGEN 20 mg/dL (6-24); CALCIUM 8.7 mg/dL (8.5-10.5); CHLORIDE 99 mMol/L (96-110); CO2 31 mMol/L (22-32); CREATININE 0.7 mg/dL (0.6-1.3); ESTIMATED GFR (MDRD EQUATION) > 60; PHOSPHORUS 3.4 mg/dL (2.5-4.9); POTASSIUM 3.8 mMol/L (3.7-5.1); SODIUM 137 mMol/L (135-145)
[2016-05-20 06:09] LABS: ALK PHOS 103 IU/L (33-138); ALT 28 IU/L (12-78); ANION GAP 11.6 (10.0-19.0); AST 21 IU/L (10-40); BLOOD UREA NITROGEN 14 mg/dL (6-24); CHLORIDE 97 mMol/L (96-110); CO2 30 mMol/L (22-32); CREATININE 0.6 mg/dL (0.6-1.3); ESTIMATED GFR (MDRD EQUATION) > 60; POTASSIUM 3.6 mMol/L (3.7-5.1); SODIUM 135 mMol/L (135-145); TOTAL PROTEIN 6.8 g/dL (6.0-8.4)
[2016-05-20 06:10] LABS: TOTAL BILIRUBIN 0.7 mg/dL (0.0-1.5)
[2016-05-27 06:36] LABS: ALBUMIN 2.6 gm/dL (3.5-5.0); ALK PHOS 77 IU/L (33-138); ALT 24 IU/L (12-78); ANION GAP 11.1 (10.0-19.0); AST 14 IU/L (10-40); BLOOD UREA NITROGEN 17 mg/dL (6-24); CALCIUM 8.9 mg/dL (8.5-10.5); CHLORIDE 97 mMol/L (96-110); CO2 32 mMol/L (22-32); CREATININE 0.6 mg/dL (0.6-1.3); ESTIMATED GFR (MDRD EQUATION) > 60; POTASSIUM 4.1 mMol/L (3.7-5.1); SODIUM 136 mMol/L (135-145); TOTAL BILIRUBIN 0.5 mg/dL (0.0-1.5); TOTAL PROTEIN 6.5 g/dL (6.0-8.4)
[2016-06-03 06:07] LABS: ALBUMIN 3.2 gm/dL (3.5-5.0); ALK PHOS 84 IU/L (33-138); ALT 34 IU/L (12-78); ANION GAP 8.3 (10.0-19.0); AST 23 IU/L (10-40); BLOOD UREA NITROGEN 20 mg/dL (6-24); CALCIUM 9.1 mg/dL (8.5-10.5); CHLORIDE 99 mMol/L (96-110); CO2 34 mMol/L (22-32); CREATININE 0.7 mg/dL (0.6-1.3); ESTIMATED GFR (MDRD EQUATION) > 60; POTASSIUM 4.3 mMol/L (3.7-5.1); SODIUM 137 mMol/L (135-145); TOTAL BILIRUBIN 0.6 mg/dL (0.0-1.5)
[2016-06-04 17:06] LABS: BILIRUBIN URINE NEGATIVE (NEGATIVE); BLOOD URINE NEGATIVE /UL (NEGATIVE); COLOR URINE YELLOW (YELLOW); GLUCOSE URINE NEGATIVE (NEGATIVE); KETONE URINE NEGATIVE (NEGATIVE); LEUKOCYTES URINE NEGATIVE /UL (NEGATIVE); NITRITE URINE NEGATIVE (NEGATIVE); PROTEIN URINE NEGATIVE (NEGATIVE); TURBIDITY URINE CLEAR (CLEAR); UROBILINOGEN URINE NORMAL (NORMAL)
[2016-06-10 05:40] LABS: BASOPHIL % 0.3 %; EOSINOPHIL # 0.2 K/uL (0.0-0.5); HEMOGLOBIN 11.4 g/dL (11.0-16.0); IMMATURE GRANULOCYTE % 0.3 %; LYMPHOCYTE # 0.6 K/uL (0.8-4.0); LYMPHOCYTE % 17.2 %; MCH 30.3 pg (27.0-34.0); MCHC 33.5 gm/dL (32.0-36.5); MCV 90.4 fl (83.0-98.0); MONOCYTE # 0.5 K/uL (0.0-1.0); MONOCYTE % 15.5 %; MPV 9.4 fl (9.4-12.4); NEUTROPHIL # (ANC) 2.1 K/uL (1.4-9.0); NEUTROPHIL % 60.7 %; NRBC % 0 /100WBC (0-0.00); RBC 3.76 M/uL (3.50-5.50); RDW-CV 14.2 % (11.9-14.6); WBC 3.5 K/uL (4.0-11.0)
[2016-06-10 05:41] LABS: PLATELET COUNT 102 K/uL (150-450)
[2016-06-10 06:03] LABS: ALBUMIN 2.8 gm/dL (3.5-5.0); ALK PHOS 67 IU/L (33-138); ALT 37 IU/L (12-78); ANION GAP 10.9 (10.0-19.0); AST 27 IU/L (10-40); BLOOD UREA NITROGEN 14 mg/dL (6-24); CALCIUM 8.3 mg/dL (8.5-10.5); CHLORIDE 103 mMol/L (96-110); CO2 28 mMol/L (22-32); CREATININE 0.6 mg/dL (0.6-1.3); ESTIMATED GFR (MDRD EQUATION) > 60; POTASSIUM 3.9 mMol/L (3.7-5.1); SODIUM 138 mMol/L (135-145); TOTAL BILIRUBIN 0.5 mg/dL (0.0-1.5)
[2016-06-17 06:36] LABS: ALBUMIN 2.9 gm/dL (3.5-5.0); ALK PHOS 72 IU/L (33-138); ALT 26 IU/L (12-78); ANION GAP 9.1 (10.0-19.0); AST 18 IU/L (10-40); BLOOD UREA NITROGEN 14 mg/dL (6-24); CALCIUM 8.5 mg/dL (8.5-10.5); CHLORIDE 102 mMol/L (96-110); CO2 31 mMol/L (22-32); CREATININE 0.7 mg/dL (0.6-1.3); ESTIMATED GFR (MDRD EQUATION) > 60; POTASSIUM 4.1 mMol/L (3.7-5.1); SODIUM 138 mMol/L (135-145); TOTAL BILIRUBIN 0.6 mg/dL (0.0-1.5); TOTAL PROTEIN 6.4 g/dL (6.0-8.4)
[2016-06-21] MEDS ORDERED: LIPITOR40 MG PO (09:25)
[2016-06-21] MEDS ORDERED: COREG 3.1253.125 MG PO (09:26)
[2016-06-21] MEDS ORDERED: NEURONTIN100 MG PO (09:32)
[2016-06-21] MEDS ORDERED: FLOMAX0.4 MG PO (09:44)
[2016-06-21] MEDS ORDERED: BENADRYL12.5 MG/5 PO (09:45)
[2016-06-21] MEDS ORDERED: BENGAY/ICY HOT/30 GM TOP (09:46)
[2016-06-21] MEDS ORDERED: ZOFRAN4 MG PO (09:48)
[2016-06-21] MEDS ORDERED: OCEAN NASAL) (A44 ML NOSE (09:48)
[2016-06-21] MEDS ORDERED: ULTRAM50 MG PO (09:49)
== END 2016-06-21 11:12 | disposition disaster alternative care site (69) | DRG 57 ==
LOC: GIRP 09:55
PROVIDERS: Nurse Practitioner Family; Physician Assistant; ADMIT Physical Medicine & Rehabilitation
PROC: F08Z4ZZ Home Management Treatment (ICD-10-PCS; 2016-05-10)
PROC: F07M6ZZ Therapeutic Exercise Treatment of Musculoskeletal System - Whole Body (ICD-10-PCS; 2016-05-10)
PROC: F07Z9ZZ Gait Training/Functional Ambulation Treatment (ICD-10-PCS; 2016-05-10)
PROC: F06Z6ZZ Communicative/Cognitive Integration Skills Treatment (ICD-10-PCS; 2016-05-10)
PROC: 3E0U33Z Introduction of Anti-inflammatory into Joints, Percutaneous Approach (ICD-10-PCS; principal; 2016-05-25)
PROC: 0S9D3ZZ Drainage of Left Knee Joint, Percutaneous Approach (ICD-10-PCS; principal; 2016-05-25)
DX: G81.94 Hemiplegia, unspecified affecting left nondominant side (principal); G62.9 Polyneuropathy, unspecified; E44.1 Mild protein-calorie malnutrition; R13.10 Dysphagia, unspecified; I48.0 Paroxysmal atrial fibrillation; J44.9 Chronic obstructive pulmonary disease, unspecified; I11.0 Hypertensive heart disease with heart failure; I50.22 Chronic systolic (congestive) heart failure; I65.21 Occlusion and stenosis of right carotid artery; R47.81 Slurred speech; S06.300D Unspecified focal traumatic brain injury without loss of consciousness, subsequent encounter; R26.9 Unspecified abnormalities of gait and mobility; I25.10 Atherosclerotic heart disease of native coronary artery without angina pectoris; M17.12 Unilateral primary osteoarthritis, left knee; E78.5 Hyperlipidemia, unspecified; R15.9 Full incontinence of feces; R32 Unspecified urinary incontinence; Z95.1 Presence of aortocoronary bypass graft; Z95.5 Presence of coronary angioplasty implant and graft; W18.30XD Fall on same level, unspecified, subsequent encounter; Z95.0 Presence of cardiac pacemaker; Z95.3 Presence of xenogenic heart valve; I25.2 Old myocardial infarction; Z79.01 Long term (current) use of anticoagulants; Z96.652 Presence of left artificial knee joint; G47.33 Obstructive sleep apnea (adult) (pediatric); Z68.25 Body mass index [BMI] 25.0-25.9, adult; R47.1 Dysarthria and anarthria
CPT/HCPCS: J1040; J1650; Q0162

== ENCOUNTER → 2016-07-09 | Outpatient (CLI) | payer MEDICARE, BC ==
[~2016-07-09] MED LIST changes: +BENADRYL12.5 MG/5 PO; +BENGAY/ICY HOT/30 GM TOP; +COREG 3.1253.125 MG PO; +FLOMAX0.4 MG PO; +LIPITOR40 MG PO; +OCEAN NASAL) (A44 ML NOSE; +ULTRAM50 MG PO; +ZOFRAN4 MG PO
== END | disposition disaster alternative care site (69) ==
LOC: GRAD 07-05 08:00
DX: I62.9 Nontraumatic intracranial hemorrhage, unspecified (principal)